=== PATIENT | male | born 1955 | race Caucasian/White ===

== ENCOUNTER 2019-06-25 08:46 | Inpatient (IN) | payer BC ==
[2019-06-25] MEDS ORDERED: Sodium Chloride 0.9% 10 ML Syringe FLUSH PRN (09:07)
--- NOTE | 2019-06-25 09:18 | EDM.PDOC ---
ED HPI GENERAL MEDICAL PROBLEM - General Chief Complaint: Eye Problems Stated Complaint: FAINTED YESTERDAY BAD EYE SIGHT TODAY Time Seen by Provider: 06/25/19 08:56 Source of Information: Reports: Patient History Limitations: Reports: No Limitations - History of Present Illness INITIAL COMMENTS - FREE TEXT/NARRATIVE: The patient presents with vision changes and lightheadedness. The patient says this all started yesterday. He was at work making coffee when he became lightheaded. He did not pass out but he was lightheaded. He has had some lightheadedness since then. He also has some vision changes. He says when he is reading at times his vision will be blurry and then he looses letters at the edge of the page. He has no headache, chest pain or shortness of breath. He has no numbness or weakness. He has no fever, chills, cough, congestion, runny nose, abdominal pain, nausea or vomiting. This has never happened to him before. He has hypertension that he takes meds for. He has no history of heart problems. 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 He has not been taking his potassium lately because he does not feel like his potassium is low. Onset: Gradual Duration: Day(s): Improves with: Reports: None Worsens with: Reports: None Associated Symptoms: Reports: No Other Symptoms - Related Data Allergies Allergy/AdvReac Type Severity Reaction Status Date / Time No Known Allergies Allergy Verified 06/25/19 09:00 Home Meds: Home Meds Nebivolol HCl [Bystolic] 10 mg PO DAILY 06/25/19 [History] Potassium Chloride 10 meq PO DAILY 06/25/19 [History] Spironolactone [Aldactone] 25 mg PO DAILY 06/25/19 [History] Valsartan 320 mg PO DAILY 06/25/19 [History] acetaZOLAMIDE [Acetazolamide] 250 mg PO DAILY 06/25/19 [History] ED ROS GENERAL - Review of Systems Review Of Systems: See Below Constitutional: Reports: No Symptoms HEENT: Reports: Other (Vision changes) Respiratory: Reports: No Symptoms Cardiovascular: Reports: No Symptoms Endocrine: Reports: No Symptoms GI/Abdominal: Reports: No Symptoms : Reports: No Symptoms Musculoskeletal: Reports: No Symptoms ED EXAM GENERAL W FULL EYE - Physical Exam Exam: See Below Exam Limited By: No Limitations General Appearance: Alert, No Apparent Distress Eye Exam: Bilateral Eye: EOMI, PERRL Eyelids: Bilateral: Normal Appearance Conjunctiva & Sclera: Bilateral: Normal Appearance Extraocular Movements: Bilateral: Intact Pupillary Size: Bilateral: 4 mm Pupillary Reaction: Bilateral: Brisk Anterior Chamber: Bilateral: Normal Appearance Posterior Chamber: Bilateral: Normal Funduscopic Ears: Normal External Exam Nose: Normal Inspection Head: Atraumatic, Normocephalic Neck: Normal Inspection Respiratory/Chest: No Respiratory Distress, Lungs Clear, Normal Breath Sounds Cardiovascular: Regular Rate, Rhythm, No Edema, No Murmur GI/Abdominal: Soft, Non-Tender, No Organomegaly, No Mass Back Exam: Normal Inspection Extremities: Normal Inspection Neurological: Alert, Oriented, No Motor/Sensory Deficits Course - Vital Signs Last Recorded V/S: Last Vital Signs Temp 96.8 F L 06/25/19 08:53 Pulse 72 06/25/19 08:53 Resp 20 06/25/19 08:53 BP 129/77 06/25/19 08:53 Pulse Ox 97 06/25/19 08:53 - Orders/Labs/Meds Orders: Active Orders 24 hr Category Date Time Status Cardiac Monitoring [RC] . DIRECTED Care 06/25/19 09:07 Active EKG 12 Lead [EKG Documentation Completion] [RC] ROUTINE Care 06/25/19 08:54 Active EKG 12 Lead [EKG Documentation Completion] [RC] ROUTINE Care 06/25/19 12:12 Active Peripheral IV Care [RC] . DIRECTED Care 06/25/19 09:09 Active Sodium Chloride 0.9% [Saline Flush] Med 06/25/19 09:07 Active 10 ml FLUSH ASDIRECTED PRN Sodium Chloride 0.9% [Saline Flush] Med 06/25/19 10:15 Active 20 ml FLUSH ASDIRECTED Peripheral IV Insertion Adult [OM.PC] Stat Oth 06/25/19 09:07 Ordered Medication Orders Sodium Chloride (Saline Flush) 10 ml FLUSH ASDIRECTED PRN PRN Reason: Keep Vein Open Last Admin: 06/25/19 09:18 Dose: 10 ml Sodium Chloride (Saline Flush) 20 ml FLUSH ASDIRECTED HILL Last Admin: 06/25/19 10:44 Dose: 20 ml Labs: Laboratory Tests 06/25/19 06/25/19 06/25/19 Range/Units 09:00 09:00 09:00 WBC 9.73 H (4.23-9.07) K/mm3 RBC 5.61 (4.63-6.08) M/mm3 Hgb 17.8 H (13.7-17.5) gm/dl Hct 54.3 H (40.1-51.0) % MCV 96.8 H (79.0-92.2) fl MCH 31.7 (25.7-32.2) pg MCHC 32.8 (32.2-35.5) g/dl RDW Std Deviation 55.6 H (35.1-43.9) fL Plt Count 412 H (163-337) K/mm3 MPV 11.2 (9.4-12.3) fl Neut % (Auto) 52.6 (34.0-67.9) % Lymph % (Auto) 27.6 (21.8-53.1) % Elbert % (Auto) 13.6 H (5.3-12.2) % Eos % (Auto) 4.8 (0.8-7.0) Baso % (Auto) 1.1 (0.1-1.2) % Neut # (Auto) 5.11 (1.78-5.38) K/mm3 Lymph # (Auto) 2.69 (1.32-3.57) K/mm3 Elbert # (Auto) 1.32 H (0.30-0.82) K/mm3 Eos # (Auto) 0.47 (0.04-0.54) K/mm3 Baso # (Auto) 0.11 H (0.01-0.08) K/mm3 PT 10.9 (9.7-12.0) SECONDS INR 1.00 APTT 29 (22-31) SECONDS Sodium 136 (136-145) mEq/L Potassium 4.4 (3.5-5.1) mEq/L Chloride 103 (98-107) mEq/L Carbon Dioxide 21 (21-32) mEq/L Anion Gap 16.4 H (5-15) BUN 29 H (7-18) mg/dL Creatinine 0.6 L (0.7-1.3) mg/dL Est Cr Clr Drug Dosing 140.11 mL/min Estimated GFR (MDRD) > 60 (>60) mL/min BUN/Creatinine Ratio 48.3 H (14-18) Glucose 132 H (80-115) mg/dL Calcium 9.5 (8.5-10.1) mg/dL Magnesium 1.9 (1.8-2.4) mg/dl Total Bilirubin 0.8 (0.2-1.0) mg/dL AST 42 H (15-37) U/L ALT 46 (16-63) U/L Alkaline Phosphatase 92 (46-116) U/L Troponin I < 0.017 (0.00-0.056) ng/mL Total Protein 7.8 (6.4-8.2) g/dl Albumin 3.9 (3.4-5.0) g/dl Globulin 3.9 gm/dL Albumin/Globulin Ratio 1.0 (1-2) TSH 3rd Generation 3.679 (0.358-3.74) uIU/mL Meds: Medications Generic Name Dose Route Start Last Admin Trade Name Freq PRN Reason Stop Dose Admin Sodium Chloride 10 ml 06/25/19 09:07 06/25/19 09:18 Saline Flush FLUSH 10 ml ASDIRECTED PRN Administration Keep Vein Open Sodium Chloride 20 ml 06/25/19 10:15 06/25/19 10:44 Saline Flush FLUSH 20 ml ASDIRECTED HILL Administration Discontinued Medications Generic Name Dose Route Start Last Admin Trade Name Bárbara PRN Reason Stop Dose Admin Aspirin 324 mg 06/25/19 13:27 06/25/19 13:38 Aspirin PO 06/25/19 13:28 324 mg ONETIME ONE Administration Gadobenate Dimeglumine 20 ml 06/25/19 10:03 06/25/19 10:44 Multihance IVPUSH 06/25/19 10:04 20 ml ONETIME ONE Administration - Re-Assessments/Exams Free Text/Narrative Re-Assessment/Exam: 06/25/19 09:20 The patient was put on the property assessment monitor and he was in A-fib. He was having some pauses with the longest being about 3 seconds. His EKG shows atrial fibrillation at a rate of 70 with no acute changes and RBBB. He has no known history of A-fib. I also ordered a CT of his head and labs. I had my nurse put the pacer pads on the patient. 06/25/19 13:09 His CXR shows nothing acute. His CT shows small low density finding within the cortex of the posterior left occipital lobe. This could represent fairly recent infarct. Brain MRI is recommended to make sure this does not represent other abnormality. Brain MRI should be performed without and with contrast. Sinus findings which are most likely chronic. No acute intracranial abnormality is seen. I ordered an MRI. His MRI shows abnormal diffusion within the cortex of the left posterior occipital lobe. 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 Small vessel ischemic demyelination change believed to be present. His CBC and CMP look good. His tropnin is negative. It appears he has new onset A-fib and a stroke. I talked with our hospitalist and she was concerned with his EKG and property assessment monitor that he is having many pauses with the A-fib. The longest was 3 seconds. She recommended he go down to [place]. I have called [facility] in [place]. 06/25/19 13:[address] Linda the neurologist and she wanted him to have aspirin and was okay with him coming but talk to cardiology and the hospitalist first. I talked with Dr Killian the light equipment operator and he recommended halfing his bystolic and if that does not help stopping it. He did not feel like he needed to come at this time. I talked with Dr Ray and she was okay with the admission. Departure - Departure Time of Disposition: 13:45 Disposition: Refer to Observation Condition: Fair Clinical Impression: Atrial fibrillation Qualifiers: Atrial fibrillation type: unspecified Qualified Code(s): I48.91 - Unspecified atrial fibrillation CVA (cerebral vascular accident) Qualifiers: CVA mechanism: unspecified Qualified Code(s): I63.9 - Cerebral infarction, unspecified - Discharge Information Referrals: PCP,None [Primary Care Provider] - Forms: ED Department Discharge Sepsis Event Note - Evaluation Sepsis Screening Result: No Definite Risk - Focused Exam Vital Signs: Vital Signs Temp Pulse Resp BP Pulse Ox 06/25/19 08:53 96.8 F L 72 20 129/77 97 Date Exam was Performed: 06/25/19 Time Exam was Performed: 13:41 - My Orders Last 24 Hours: My Active Orders 06/25/19 08:54 EKG 12 Lead [EKG Documentation Completion] [RC] ROUTINE 06/25/19 09:07 Cardiac Monitoring [RC] . DIRECTED Sodium Chloride 0.9% [Saline Flush] 10 ml FLUSH ASDIRECTED PRN Peripheral IV Insertion Adult [OM.PC] Stat 06/25/19 09:09 Peripheral IV Care [RC] . DIRECTED 06/25/19 10:15 Sodium Chloride 0.9% [Saline Flush] 20 ml FLUSH ASDIRECTED - Assessment/Plan Last 24 Hours: My Active Orders 06/25/19 08:54 EKG 12 Lead [EKG Documentation Completion] [RC] ROUTINE 06/25/19 09:07 Cardiac Monitoring [RC] . DIRECTED Sodium Chloride 0.9% [Saline Flush] 10 ml FLUSH ASDIRECTED PRN Peripheral IV Insertion Adult [OM.PC] Stat 06/25/19 09:09 Peripheral IV Care [RC] . DIRECTED 06/25/19 10:15 Sodium Chloride 0.9% [Saline Flush] 20 ml FLUSH ASDIRECTED
--- NOTE | 2019-06-25 09:38 | CT ---
Head CT Technique: Multiple axial sections through the brain were obtained. Intravenous contrast was not utilized. Comparison: No previous intracranial imaging is available. Findings: Ventricles along with basal cisterns and sulci over the convexities are within normal limits for the patient's age. Small low density area noted within the cortex of the left occipital lobe measuring 2.1 cm. No other abnormal parenchymal densities are seen. No evidence of intracranial hemorrhage. No midline shift or mass-effect is seen. Bone window settings were reviewed. Atherosclerotic calcification is seen within the carotid siphon. Nothing acute is seen within the mastoid sinuses. Mild mucosal thickening is noted within the ethmoid and right frontal sinus. No air-fluid level seen within the paranasal sinuses. No acute calvarial finding is seen. Impression: 1. Small low density finding within the cortex of the posterior left occipital lobe. This could represent fairly recent infarct. Brain MRI is recommended to make sure this does not represent other abnormality. Brain MRI should be performed without and with contrast. 2. Sinus findings which are most likely chronic. 3. No acute intracranial abnormality is seen. Diagnostic code #9 This report was dictated in MDT
[2019-06-25] MEDS ORDERED: Gadobenate Dimeglumine 529 MG/ML 20 ML SDV IVPUSH ONE (10:03)
[2019-06-25] MEDS ORDERED: Sodium Chloride 0.9% 10 ML Syringe FLUSH SCH (10:15)
--- NOTE | 2019-06-25 10:29 | CR ---
Chest: Portable view of the chest was obtained. Comparison: No prior chest imaging is available. Mild atelectasis is seen within the left base. Lungs otherwise are clear. Heart size and mediastinum are normal. Bony structures are unremarkable. Impression: 1. Mild left basilar atelectasis. 2. Nothing acute is otherwise seen on portable chest x-ray. Diagnostic code #2 This report was dictated in MDT
--- NOTE | 2019-06-25 11:32 | MR ---
MRI brain Technique: T1 sagittal; T2, T2 FLAIR, T1 and diffusion axial; T1 and T2 gradient echo coronal; postcontrast T1 axial and post contrast T1 coronal images were obtained of the brain. Comparison: Prior head CT study performed earlier on the same day (9:15 AM). Findings: Multiple small areas of increased signal seen within the periventricular and subcortical white matter most likely representing small vessel ischemic demyelination change. More focal area of increased signal is seen within the cortex of the left occipital lobe. This area shows abnormal diffusion and is compatible with a cortical infarct. Increased signal on the FLAIR sequence is compatible with irreversible infarct. No other areas of abnormal diffusion are seen. No midline shift or mass-effect is seen. No abnormal areas of enhancement are seen. Impression: 1. Abnormal diffusion within the cortex of the left posterior occipital lobe. 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 2. Small vessel ischemic demyelination change believed to be present. 3. No abnormal enhancement is seen. Diagnostic code #3 This report was dictated in MDT
[2019-06-25] MEDS ORDERED: Aspirin 81 MG Tab.Chew PO ONE (13:27)
[2019-06-25] MEDS ORDERED: Acetaminophen 325 MG Tab PO PRN (14:19)
--- NOTE | 2019-06-25 14:31 | PCM.HP.2 ---
H&P History of Present Illness - General Date of Service: 06/25/19 Admit Problem/Dx: Admission Diagnosis/Problem Admission Diagnosis/Problem Cardiac arrhythmia Source of Information: Patient, Provider, RN, RN Notes Reviewed History Limitations: Reports: No Limitations - History of Present Illness Initial Comments - Free Text/Narative: Michael Fitch is a 63 yo male who presented to ED on 06/25/2019 reporting vision changes and lightheadedness. He states that he began having symptoms the day prior and had a presyncopal episode. Reports he has been lightheaded since then. States his vision has been blurry and he loses letters at the edge of the page. Denies headache, chest pain, shortness of breath, numbness, tingling , weakness, fever, chills, cough, congestion, runny nose, stfe pain, nausea, vomiting. Reports this is never happened to him before. He does have a history of hypertension and is medicated for this. Denies any prior NM. 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 He reports that he has not been taking his potassium though because he feels like it has been normal. In the ED he was afebrile with mild leukocytosis. Troponin was negative and TSH was normal. He was noted to have A. fib on the monitoring engineer with sinus pauses. Longest was 3 seconds. Does have a right bundle branch block. He has no history of A. fib as far as he is aware. Head CT is obtained showing a small low-density finding within the cortex of the posterior left occipital lobe. This could represent a fairly recent infarct. Brain MRI with and without contrast is recommended. And his findings which are most likely chronic and no acute intracranial abnormality are also noted. 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 He also has small vessel ischemic demyelination changes but no abnormal enhancement is seen. Chest x-ray is obtained showing basilar atelectasis but nothing acute. Dr. Herr, neurologist with [facility] in [place] was contacted and would like the patient started on aspirin. He would like cardiology involved as well. Dr. Killian, mammalogist with [facility] contacted and recommends having the patient's Bystolic to start. If that does not help he thinks the patient can come off it and that it is likely not needed at this time. He does not feel the patient needs to be transferred to [place]. He carries a history of hypertension and hypokalemic periodic paralysis. Full code. He does not have a PCP locally. He is subsequently admitted observation status to the medical floor on telemetry for monitoring while his medications are adjusted. - Related Data Allergies/Adverse Reactions: Allergies Allergy/AdvReac Type Severity Reaction Status Date / Time No Known Allergies Allergy Verified 06/25/19 15:12 Home Medications: Home Meds Nebivolol HCl [Bystolic] 10 mg PO DAILY 06/25/19 [History] Potassium Chloride 10 meq PO DAILY 06/25/19 [History] Spironolactone [Aldactone] 25 mg PO DAILY 06/25/19 [History] Valsartan 320 mg PO DAILY 06/25/19 [History] acetaZOLAMIDE [Acetazolamide] 250 mg PO DAILY 06/25/19 [History] Past Medical History HEENT History: Reports: Impaired Vision Other HEENT History: wears glasses Cardiovascular History: Reports: Hypertension Endocrine/Metabolic History: Reports: Other (See Below) Other Endocrine/Metabolic History: Hypokalemic periodic paralysis - Past Surgical History HEENT Surgical History: Reports: Oral Surgery Other HEENT Surgeries/Procedures: wisdom Musculoskeletal Surgical History: Reports: Hip Replacement, Shoulder Surgery Other Musculoskeletal Surgeries/Procedures:: Right hip replacement, rotator cuff surgery. Social & Family History - Tobacco Use Smoking Status *Q: Never Smoker H&P Review of Systems - Review of Systems: Review Of Systems: See Below General: Reports: No Symptoms. Denies: Fever, Malaise, Weakness, Fatigue HEENT: Reports: Visual Changes. Denies: Eye Pain, Headaches, Hearing Changes, Sore Throat, Vertigo Pulmonary: Reports: No Symptoms. Denies: Shortness of Breath, Wheezing, Pleuritic Chest Pain, Cough, Sputum Cardiovascular: Reports: No Symptoms. Denies: Chest Pain, Palpitations, Dyspnea on Exertion, Edema, Lightheadedness Gastrointestinal: Reports: No Symptoms. Denies: Abdominal Pain, Constipation, Diarrhea, Nausea, Vomiting Genitourinary: Reports: No Symptoms. Denies: Pain Musculoskeletal: Reports: No Symptoms Skin: Reports: No Symptoms. Denies: Cyanosis Psychiatric: Reports: No Symptoms. Denies: Confusion Neurological: Reports: No Symptoms. Denies: Dizziness, Headache, Numbness, Paresthesia, Pre-Existing Deficit, Seizure, Syncope, Tingling, Tremors, Trouble Speaking, Difficulty Walking, Weakness, Change in Speech, Gait Disturbance Hematologic/Lymphatic: Reports: No Symptoms Immunologic: Reports: No Symptoms Exam - Exam Exam: See Below - Vital Signs Vital Signs: Last Vital Signs Temp 96.8 F L 06/25/19 08:53 Pulse 72 06/25/19 08:53 Resp 20 06/25/19 08:53 BP 129/77 06/25/19 08:53 Pulse Ox 97 06/25/19 08:53 Weight: 257 lb - Exam Quality Assessment: DVT Prophylaxis General: Alert, Oriented, Cooperative. No: Mild Distress HEENT: Conjunctiva Clear, EACs Clear, EOMI, Hearing Intact, Mucosa Moist & [place] , Nares Patent, Posterior Pharynx Clear, PERRLA Neck: Supple, Trachea Midline Lungs: Clear to Auscultation, Normal Respiratory Effort Cardiovascular: Regular Rate, Regular Rhythm GI/Abdominal Exam: Normal Bowel Sounds, Soft, Non-Tender, No Distention (Male) Exam: Deferred Rectal (Males) Exam: Deferred Back Exam: Normal Inspection, Full Range of Motion Extremities: Normal Inspection, Normal Range of Motion, Non-Tender, No Pedal Edema, Normal Capillary Refill Skin: Warm, Dry, Intact Neurological: Cranial Nerves Intact, Strength Equal Bilateral, Normal Gait, Normal Speech, Normal Tone, Sensation Intact Neuro Extensive - Mental Status: Alert, Oriented x3, Normal Mood/Affect Psychiatric: Alert, Normal Affect, Normal Mood - Patient Data Lab Results Last 24 hrs: Laboratory Results - last 24 hr 06/25/19 06/25/19 06/25/19 Range/Units 09:00 09:00 09:00 WBC 9.73 H (4.23-9.07) K/mm3 RBC 5.61 (4.63-6.08) M/mm3 Hgb 17.8 H (13.7-17.5) gm/dl Hct 54.3 H (40.1-51.0) % MCV 96.8 H (79.0-92.2) fl MCH 31.7 (25.7-32.2) pg MCHC 32.8 (32.2-35.5) g/dl RDW Std Deviation 55.6 H (35.1-43.9) fL Plt Count 412 H (163-337) K/mm3 MPV 11.2 (9.4-12.3) fl Neut % (Auto) 52.6 (34.0-67.9) % Lymph % (Auto) 27.6 (21.8-53.1) % [place] % (Auto) 13.6 H (5.3-12.2) % Eos % (Auto) 4.8 (0.8-7.0) Baso % (Auto) 1.1 (0.1-1.2) % Neut # (Auto) 5.11 (1.78-5.38) K/mm3 Lymph # (Auto) 2.69 (1.32-3.57) K/mm3 [place] # (Auto) 1.32 H (0.30-0.82) K/mm3 Eos # (Auto) 0.47 (0.04-0.54) K/mm3 Baso # (Auto) 0.11 H (0.01-0.08) K/mm3 PT 10.9 (9.7-12.0) SECONDS INR 1.00 APTT 29 (22-31) SECONDS Sodium 136 (136-145) mEq/L Potassium 4.4 (3.5-5.1) mEq/L Chloride 103 (98-107) mEq/L Carbon Dioxide 21 (21-32) mEq/L Anion Gap 16.4 H (5-15) BUN 29 H (7-18) mg/dL Creatinine 0.6 L (0.7-1.3) mg/dL Est Cr Clr Drug Dosing 140.11 mL/min Estimated GFR (MDRD) > 60 (>60) mL/min BUN/Creatinine Ratio 48.3 H (14-18) Glucose 132 H (80-115) mg/dL Calcium 9.5 (8.5-10.1) mg/dL Magnesium 1.9 (1.8-2.4) mg/dl Total Bilirubin 0.8 (0.2-1.0) mg/dL AST 42 H (15-37) U/L ALT 46 (16-63) U/L Alkaline Phosphatase 92 (46-116) U/L Troponin I < 0.017 (0.00-0.056) ng/mL Total Protein 7.8 (6.4-8.2) g/dl Albumin 3.9 (3.4-5.0) g/dl Globulin 3.9 gm/dL Albumin/Globulin Ratio 1.0 (1-2) TSH 3rd Generation 3.679 (0.358-3.74) uIU/mL Result Diagrams: 06/26/19 05:02 06/26/19 05:02 Sepsis Event Note - Evaluation Sepsis Screening Result: No Definite Risk - Focused Exam Vital Signs: Vital Signs Temp Pulse Resp BP Pulse Ox 06/25/19 08:53 96.8 F L 72 20 129/77 97 Date Exam was Performed: 06/26/19 Time Exam was Performed: 13:07 - Problem List (1) New onset a-fib SNOMED Code(s): 54313949 ICD Code: I48.91 - UNSPECIFIED ATRIAL FIBRILLATION Status: Acute Priority : High Current Visit: Yes (2) CVA (cerebral vascular accident) SNOMED Code(s): 819727932 ICD Code: I63.9 - CEREBRAL INFARCTION, UNSPECIFIED Status: Acute Priority : High Current Visit: Yes Qualifiers: CVA mechanism: unspecified Qualified Code(s): I63.9 - Cerebral infarction, unspecified (3) Sinus pause SNOMED Code(s): 22439498 ICD Code: I45.5 - OTHER SPECIFIED HEART BLOCK Status: Acute Priority: High Current Visit: Yes (4) Vision impairment SNOMED Code(s): 839007772 ICD Code: H54.7 - UNSPECIFIED VISUAL LOSS Status: Acute Priority: High Current Visit: Yes (5) Hypokalemic periodic paralysis SNOMED Code(s): 73170163 ICD Code: G72.3 - PERIODIC PARALYSIS Status: Chronic Priority: Low Current Visit: Yes (6) Hypertension SNOMED Code(s): 13710726 ICD Code: I10 - ESSENTIAL (PRIMARY) HYPERTENSION Status: Chronic Priority : Medium Current Visit: No Qualifiers: Hypertension type: unspecified Qualified Code(s): I10 - Essential (primary ) hypertension (7) Encounter for medication adjustment SNOMED Code(s): 013006732, 673764289, 469142055 ICD Code: Z51.89 - ENCOUNTER FOR OTHER SPECIFIED AFTERCARE Status: Acute Priority: High Current Visit: Yes Problem List Initiated/Reviewed/Updated: Yes Orders Last 24hrs: Active Orders 24 hr Category Date Time Status Patient Status [ADT] Routine ADT 06/25/19 14:19 Ordered Cardiac Monitoring [RC] . DIRECTED Care 06/25/19 09:07 Active EKG 12 Lead [EKG Documentation Completion] [RC] ROUTINE Care 06/25/19 08:54 Active EKG 12 Lead [EKG Documentation Completion] [RC] ROUTINE Care 06/25/19 12:12 Active Height and Weight [RC] DAILY Care 06/25/19 14:19 Ordered Oxygen Therapy [RC] PRN Care 06/25/19 14:19 Ordered Peripheral IV Care [RC] . DIRECTED Care 06/25/19 09:09 Active Pulse Oximetry [RC] PRN Care 06/25/19 14:20 Ordered Up ad Senia [RC] ASDIRECTED Care 06/25/19 14:19 Ordered VTE/DVT Education [RC] PER UNIT ROUTINE Care 06/25/19 14:19 Ordered Vital Signs [RC] Q4H Care 06/25/19 14:19 Ordered Heart Healthy Diet [DIET] Diet 06/25/19 Dinner Ordered Acetaminophen [Tylenol] Med 06/25/19 14:19 Ordered 650 mg PO Q4H PRN Sodium Chloride 0.9% [Saline Flush] Med 06/25/19 09:07 Active 10 ml FLUSH ASDIRECTED PRN Sodium Chloride 0.9% [Saline Flush] Med 06/25/19 10:15 Active 20 ml FLUSH ASDIRECTED Peripheral IV Insertion Adult [OM.PC] Stat Oth 06/25/19 09:07 Ordered Resuscitation Status Routine Resus Stat 06/25/19 14:19 Ordered Medication Orders Acetaminophen (Tylenol) 650 mg PO Q4H PRN PRN Reason: Pain (Mild 1-3)/fever Sodium Chloride (Saline Flush) 10 ml FLUSH ASDIRECTED PRN PRN Reason: Keep Vein Open Last Admin: 06/25/19 09:18 Dose: 10 ml Sodium Chloride (Saline Flush) 20 ml FLUSH ASDIRECTED [facility] Last Admin: 06/25/19 10:44 Dose: 20 ml Assessment/Plan Comment:: CVA (cerebral vascular accident) New onset a-fib Encounter for medication adjustment Sinus pause Vision impairment Reports symptoms started on 06/24/19 with near syncopal episode No neurological deficits however vision changes with blurry vision and difficulty peripheral vision MRI in ED shows abnormal diffusion within the cortex of left posterior occipital lobe compatible with small irreversible cortical infarct Repots recent intentional weight gain and concerns over strength of medications Troponin negative Denies any infectious symptoms Dr. Killian, cardiology contacted in ED and recommends halving dosage of Bystolic under monitorization Dr. Linda, Neurologist contacted in ED and recommends giving patient aspirin PLAN - Telemetry - Adjust home medications - Start ASA - Patient denies any deficits, No need for LEAD TELLER eval or PT/OT at this time - Lipid panel - Calculate [id number] score Hypokalemic periodic paralysis On home potassium supplementation Has not been taking home potassium as he feels like he has not been low in some time PLAN - Monitor Labs Hypertension On home Spironolactone, and valsartan PLAN - Continue home meds - Monitor VS DVT prophylaxis: Aspirin and Lovenox GI prophylaxis: Not indicated PCP: None Disposition: Patient will be admitted to the floor under observation status with telemetry for monitoring while medications are adjusted. - Mortality Measure Prognosis:: Good
[2019-06-25] MEDS ORDERED: FLU Vacc QS2019-20(6MOS+)/PF 60 MCG/0.5 ML SYRINGE IM ONE (15:30)
[2019-06-26] MEDS ORDERED: ACETAZOLAMIDE 250 MG PO SCH (09:00)
[2019-06-26] MEDS ORDERED: Spironolactone 25 MG Tab PO SCH (09:00)
[2019-06-26] MEDS ORDERED: NEBIVOLOL HCL 10 MG PO SCH (09:00)
[2019-06-26] MEDS ORDERED: Aspirin 325 MG Tab.EC PO SCH (09:00)
[2019-06-26] MEDS: Aspirin 81 MG Tab.Chew PO SCH (09:29)
[2019-06-26] MEDS: Apixaban 5 MG Tab PO SCH ×2 (09:30→20:31)
[2019-06-26] MEDS: VALSARTAN PO SCH (09:31)
--- NOTE | 2019-06-26 13:17 | PCM.PN ---
- General Info Date of Service: 06/26/19 Admission Dx/Problem (Free Text): Admission Diagnosis/Problem Admission Diagnosis/Problem Cardiac arrhythmia Functional Status: Reports: Pain Controlled, Tolerating Diet, Ambulating, Urinating. Denies: New Symptoms - Review of Systems General: Reports: No Symptoms. Denies: Fever, Weakness, Fatigue, Malaise, Chills HEENT: Reports: No Symptoms, Visual Changes (About 95% back to normal per patient ). Denies: Ear Pain, Eye Pain, Headaches, Sinus Congestion, Sore Throat Pulmonary: Reports: No Symptoms. Denies: Shortness of Breath, Pleuritic Chest Pain, Cough, Sputum, Wheezing Cardiovascular: Reports: No Symptoms. Denies: Chest Pain, Palpitations, Edema Gastrointestinal: Reports: No Symptoms. Denies: Abdominal Pain, Constipation, Diarrhea, Nausea, Vomiting Genitourinary: Reports: No Symptoms. Denies: Pain Musculoskeletal: Reports: No Symptoms Skin: Reports: No Symptoms Neurological: Reports: No Symptoms. Denies: Confusion, Dizziness, Headache, Numbness, Paresthesia, Pre-Existing Deficit, Seizure, Syncope, Tingling, Tremors , Trouble Speaking, Difficulty Walking, Weakness, Change in Speech, Gait Disturbance Psychiatric: Reports: No Symptoms - Patient Data Vitals - Most Recent: Last Vital Signs Temp 97.7 F 06/26/19 11:19 Pulse 60 06/26/19 11:19 Resp 16 06/26/19 11:19 BP 100/68 06/26/19 11:19 Pulse Ox 96 06/26/19 11:19 Weight - Most Recent: 257 lb I&O - Last 24 Hours: Intake & Output 06/25/19 06/26/19 06/26/19 22:59 06:59 14:59 Intake Total 100 600 120 Output Total 1300 Balance 100 -700 120 Lab Results Last 24 Hours: Laboratory Results - last 24 hr 06/25/19 06/26/19 06/26/19 Range/Units 09:00 04:55 05:02 WBC 10.05 H (4.23-9.07) K/mm3 RBC 5.42 (4.63-6.08) M/mm3 Hgb 17.2 (13.7-17.5) gm/dl Hct 53.0 H (40.1-51.0) % MCV 97.8 H (79.0-92.2) fl MCH 31.7 (25.7-32.2) pg MCHC 32.5 (32.2-35.5) g/dl RDW Std Deviation 55.1 H (35.1-43.9) fL Plt Count 372 H (163-337) K/mm3 MPV 10.9 (9.4-12.3) fl Neut % (Auto) 46.6 (34.0-67.9) % Lymph % (Auto) 30.0 (21.8-53.1) % [place] % (Auto) 15.8 H (5.3-12.2) % Eos % (Auto) 6.5 (0.8-7.0) Baso % (Auto) 0.9 (0.1-1.2) % Neut # (Auto) 4.69 (1.78-5.38) K/mm3 Lymph # (Auto) 3.01 (1.32-3.57) K/mm3 [place] # (Auto) 1.59 H (0.30-0.82) K/mm3 Eos # (Auto) 0.65 H (0.04-0.54) K/mm3 Baso # (Auto) 0.09 H (0.01-0.08) K/mm3 Manual Slide Review Abnormal smear PT 10.9 (9.7-12.0) SECONDS INR 1.00 APTT 29 (22-31) SECONDS Sodium (136-145) mEq/L Potassium (3.5-5.1) mEq/L Chloride (98-107) mEq/L Carbon Dioxide (21-32) mEq/L Anion Gap (5-15) BUN (7-18) mg/dL Creatinine (0.7-1.3) mg/dL Est Cr Clr Drug Dosing mL/min Estimated GFR (MDRD) (>60) mL/min BUN/Creatinine Ratio (14-18) Glucose (80-115) mg/dL Calcium (8.5-10.1) mg/dL Phosphorus (2.6-4.7) mg/dL Magnesium (1.8-2.4) mg/dl Total Bilirubin (0.2-1.0) mg/dL AST (15-37) U/L ALT (16-63) U/L Alkaline Phosphatase (46-116) U/L Total Protein (6.4-8.2) g/dl Albumin (3.4-5.0) g/dl Globulin gm/dL Albumin/Globulin Ratio (1-2) Triglycerides 119 (<150) mg/dL Cholesterol 174 (<200) mg/dL LDL Cholesterol Direct 108 H* (<100) mg/dL HDL Cholesterol 52.0 (40-59) mg/dL 06/26/19 Range/Units 05:02 WBC (4.23-9.07) K/mm3 RBC (4.63-6.08) M/mm3 Hgb (13.7-17.5) gm/dl Hct (40.1-51.0) % MCV (79.0-92.2) fl MCH (25.7-32.2) pg MCHC (32.2-35.5) g/dl RDW Std Deviation (35.1-43.9) fL Plt Count (163-337) K/mm3 MPV (9.4-12.3) fl Neut % (Auto) (34.0-67.9) % Lymph % (Auto) (21.8-53.1) % [place] % (Auto) (5.3-12.2) % Eos % (Auto) (0.8-7.0) Baso % (Auto) (0.1-1.2) % Neut # (Auto) (1.78-5.38) K/mm3 Lymph # (Auto) (1.32-3.57) K/mm3 [place] # (Auto) (0.30-0.82) K/mm3 Eos # (Auto) (0.04-0.54) K/mm3 Baso # (Auto) (0.01-0.08) K/mm3 Manual Slide Review PT (9.7-12.0) SECONDS INR APTT (22-31) SECONDS Sodium 137 (136-145) mEq/L Potassium 4.6 (3.5-5.1) mEq/L Chloride 104 (98-107) mEq/L Carbon Dioxide 23 (21-32) mEq/L Anion Gap 14.6 (5-15) BUN 26 H (7-18) mg/dL Creatinine 0.7 (0.7-1.3) mg/dL Est Cr Clr Drug Dosing 120.10 mL/min Estimated GFR (MDRD) > 60 (>60) mL/min BUN/Creatinine Ratio 37.1 H (14-18) Glucose 98 (80-115) mg/dL Calcium 9.0 (8.5-10.1) mg/dL Phosphorus 4.5 (2.6-4.7) mg/dL Magnesium 2.0 (1.8-2.4) mg/dl Total Bilirubin 0.7 (0.2-1.0) mg/dL AST 35 (15-37) U/L ALT 37 (16-63) U/L Alkaline Phosphatase 78 (46-116) U/L Total Protein 6.9 (6.4-8.2) g/dl Albumin 3.4 (3.4-5.0) g/dl Globulin 3.5 gm/dL Albumin/Globulin Ratio 1.0 (1-2) Triglycerides (<150) mg/dL Cholesterol (<200) mg/dL LDL Cholesterol Direct (<100) mg/dL HDL Cholesterol (40-59) mg/dL Med Orders - Current: Current Medications Acetaminophen (Tylenol) 650 mg PO Q4H PRN PRN Reason: Pain (Mild 1-3)/fever Apixaban (Eliquis) 5 mg PO BID [facility] Last Admin: 06/26/19 09:30 Dose: Not Given Aspirin (Aspirin) 81 mg PO DAILY [facility] Last Admin: 06/26/19 09:29 Dose: Not Given Nebivolol Hcl 10 Mg Patient's Own Med 0 each PO DAILY [facility] Last Admin: 06/26/19 09:31 Dose: Not Given Acetazolamide 250 Mg Patient's Own Med 0 each PO DAILY [facility] Last Admin: 06/26/19 09:31 Dose: Not Given Valsartan [Valsartan ] 160 Mg = 1/2 Tab * * Patient's Own Med 0 each PO DAILY [facility] Last Admin: 06/26/19 09:31 Dose: Not Given Sodium Chloride (Saline Flush) 20 ml FLUSH ASDIRECTED [facility] Last Admin: 06/25/19 10:44 Dose: 20 ml Spironolactone (Aldactone) 25 mg PO DAILY [facility] Last Admin: 06/26/19 09:29 Dose: Not Given Discontinued Medications Aspirin (Aspirin) 324 mg PO ONETIME ONE Stop: 06/25/19 13:28 Last Admin: 06/25/19 13:38 Dose: 324 mg Aspirin (Ecotrin) 325 mg PO DAILY [facility] Last Admin: 06/26/19 08:36 Dose: 325 mg Gadobenate Dimeglumine (Multihance) 20 ml IVPUSH ONETIME ONE Stop: 06/25/19 10:04 Last Admin: 06/25/19 10:44 Dose: 20 ml Influenza Virus Vaccine (Pharmacy To Dose - Influenza Vaccine) 0 each IM ONETIME ONE Stop: 06/25/19 15:05 Influenza Virus Vaccine (Fluzone Quad Syringe) 60 mcg IM .ONCE ONE Stop: 06/25/19 15:31 Sodium Chloride (Saline Flush) 10 ml FLUSH ASDIRECTED PRN PRN Reason: Keep Vein Open Last Admin: 06/25/19 09:18 Dose: 10 ml - Exam Quality Assessment: DVT Prophylaxis General: Alert, Oriented, Cooperative, No Acute Distress HEENT: Pupils Equal, Pupils Reactive, EOMI, Mucous Membr. Moist/[place] Neck: Supple, Trachea Midline Lungs: Clear to Auscultation, Normal Respiratory Effort Cardiovascular: Regular Rate, Irregular Rhythm GI/Abdominal Exam: Normal Bowel Sounds, Soft, Non-Tender, No Distention (Male) Exam: Deferred Back Exam: Normal Inspection, Full Range of Motion Extremities: Normal Inspection, Normal Range of Motion, Non-Tender, No Pedal Edema, Normal Capillary Refill Skin: Warm, Dry, Intact Neurological: No New Focal Deficit, Normal Gait, Normal Speech, Normal Tone, Strength Equal Bilateral, Reflexes Equal Bilateral, Sensation Intact, Cranial Nerves Intact Psy/Mental Status: Alert, Normal Affect, Normal Mood Sepsis Event Note - Evaluation Sepsis Screening Result: No Definite Risk - Focused Exam Vital Signs: Vital Signs Temp Pulse Resp BP BP Pulse Ox 06/26/19 11:19 97.7 F 60 16 100/68 96 06/26/19 08:32 99/69 06/26/19 08:02 98.1 F 61 16 95/62 95 06/26/19 03:48 96/64 06/26/19 03:33 97.7 F 63 14 86/59 L 93 L 06/26/19 03:29 97.5 F 66 15 85/60 L 97 Date Exam was Performed: 06/26/19 Time Exam was Performed: 13:08 - Problem List & Annotations (1) New onset a-fib SNOMED Code(s): 90305676 Code(s): I48.91 - UNSPECIFIED ATRIAL FIBRILLATION Status: Acute Priority : High Current Visit: Yes (2) CVA (cerebral vascular accident) SNOMED Code(s): 987261137 Code(s): I63.9 - CEREBRAL INFARCTION, UNSPECIFIED Status: Acute Priority : High Current Visit: Yes Qualifiers: CVA mechanism: unspecified Qualified Code(s): I63.9 - Cerebral infarction, unspecified (3) Sinus pause SNOMED Code(s): 51489830 Code(s): I45.5 - OTHER SPECIFIED HEART BLOCK Status: Acute Priority: High Current Visit: Yes (4) Vision impairment SNOMED Code(s): 665255861 Code(s): H54.7 - UNSPECIFIED VISUAL LOSS Status: Acute Priority: High Current Visit: Yes (5) Hypokalemic periodic paralysis SNOMED Code(s): 47456274 Code(s): G72.3 - PERIODIC PARALYSIS Status: Chronic Priority: Low Current Visit: Yes (6) Hypertension SNOMED Code(s): 85473802 Code(s): I10 - ESSENTIAL (PRIMARY) HYPERTENSION Status: Chronic Priority : Medium Current Visit: No Qualifiers: Hypertension type: unspecified Qualified Code(s): I10 - Essential (primary ) hypertension (7) Encounter for medication adjustment SNOMED Code(s): 993677649, 515757277, 311548605 Code(s): Z51.89 - ENCOUNTER FOR OTHER SPECIFIED AFTERCARE Status: Acute Priority: High Current Visit: Yes - Problem List Review Problem List Initiated/Reviewed/Updated: Yes - My Orders Last 24 Hours: My Active Orders 06/25/19 14:19 Height and Weight [RC] 04 Oxygen Therapy [RC] PRN Up ad Senia [RC] BID VTE/DVT Education [RC] PER UNIT ROUTINE Vital Signs [RC] Q4HR Acetaminophen [Tylenol] 650 mg PO Q4H PRN Resuscitation Status Routine 06/25/19 14:20 Pulse Oximetry [RC] PRN 06/25/19 Dinner Heart Healthy Diet [DIET] 06/26/19 08:41 Echo Comp wo Cont [US] Routine 06/26/19 09:00 Apixaban [Eliquis] 5 mg PO BID Aspirin 81 mg PO DAILY Patient's Own Medication [Ptom] 0 each PO DAILY Patient's Own Medication [Ptom] 0 each PO DAILY Patient's Own Medication [Ptom] 0 each PO DAILY Spironolactone [Aldactone] 25 mg PO DAILY - Plan Plan:: CVA (cerebral vascular accident) New onset a-fib Encounter for medication adjustment Sinus pause Vision impairment Reports symptoms started on 06/24/19 with near syncopal episode No neurological deficits however vision changes with blurry vision and difficulty peripheral vision MRI in ED shows abnormal diffusion within the cortex of left posterior occipital lobe compatible with small irreversible cortical infarct Repots recent intentional weight gain and concerns over strength of medications Troponin negative Denies any infectious symptoms Dr. Killian, cardiology contacted in ED and recommends halving dosage of Bystolic under monitorization Dr. Linda, Neurologist contacted in ED and recommends giving patient aspirin Reports recent 40lb intentional weight loss PLAN - Telemetry - continued A-fib - Adjust home medications - Cut Bystolic to 5mg - Start ASA 81mg - Patient denies any deficits, No need for [employer]PERATOR eval or PT/OT at this time - Lipid panel shows mildly elevated LDL, Triglycerides and HDL WNL - Calculate [id number] score: 3 moderate-high risk - Start Eliquis BID - Start Zocor - Neuro checks as ordered - Obtain echo - Continue Beta awa - Stress test in AM Hypokalemic periodic paralysis On home potassium supplementation and Acetazolamide Has not been taking home potassium as he feels like he has not been low in some time PLAN - Monitor Labs Hypertension On home Spironolactone, and valsartan Has been on the low end of normal here PLAN - Continue spironolactone but cut valsartan in half to 160mg - Monitor VS DVT prophylaxis: Eliquis GI prophylaxis: Not indicated PCP: None - has been getting meds refilled by prior PCP. Needs to establish locally Disposition: Patient upgraded to inpatient status due to CVA and new onset A- fib requiring further workup. Likely discharge in 24-48 hours pending test results.
[2019-06-26] MEDS ORDERED: Metoprolol Tartrate 5 MG/5 ML SDV IVPUSH PRN (14:58)
[2019-06-26] MEDS: Simvastatin 20 MG Tab PO SCH (20:31)
[2019-06-26] MEDS ORDERED: Lactated Ringers 500 ML IV ONE (20:39)
[2019-06-27] MEDS ORDERED: Lactated Ringers 500 ML IV ONE (07:23)
--- NOTE | 2019-06-27 08:03 | PCM.PRNOTE ---
- Free Text/Narrative Note: Date of service: 06/27/19 Procedure: Regadenoson (Lexiscan) stress test Ordering provider: Sam Barber PA-C Indication: New onset A-fib/Flutter Baseline EKG: A-flutter at 64 bpm Risks and benefits were discussed with the patient and consent form was signed. The patient received Regadenoson (Lexiscan) 0.4 mg IV and a nuclear agent using standard protocol. The patient was seated for the procedure. Lexiscan test: Heart rate: 106 bpm; Blood pressure: 135/92 mm Hg; Oxygenation: 96%. EKG changes of ischemia during stress test or in recovery: None Arrhythmias: None Adverse effects of Lexiscan: Chest pressure and lightheadedness. Patient became acutely hypotensive and had a pre-syncopal episode. Patient was reclined in chair which resolved his symptoms. BP remained low and IV fluid bolus of 500mL was ordered to be started on the floor. Test terminated due to: End of protocol Impression: 1. Indeterminate Lexiscan stress test ECG for ischemia. Non-diagnostic per Lexiscan protocol. No definitive signs of ischemia seen. 2. Nuclear images pending and will be reported separately per Radiologist.
--- NOTE | 2019-06-27 09:33 | PCM.PN ---
- General Info Date of Service: 06/27/19 Admission Dx/Problem (Free Text): Admission Diagnosis/Problem Admission Diagnosis/Problem Cardiac arrhythmia Subjective Update: Reports he feels very good this afternoon States vision is still about 95% Hypotensive this AM and yesterday PM - IV fluids given Adjusting medications Reports BM today No patient concerns. Functional Status: Reports: Pain Controlled, Tolerating Diet, Ambulating, Urinating - Review of Systems General: Reports: No Symptoms. Denies: Fever, Weakness, Malaise, Chills HEENT: Reports: Visual Changes (remaining - about 95% back to normal). Denies: Headaches, Sore Throat Pulmonary: Reports: No Symptoms. Denies: Shortness of Breath, Pleuritic Chest Pain, Cough, Sputum, Wheezing Cardiovascular: Reports: No Symptoms. Denies: Chest Pain, Palpitations, Dyspnea on Exertion, Edema Gastrointestinal: Reports: No Symptoms. Denies: Abdominal Pain, Constipation, Diarrhea, Nausea, Vomiting Genitourinary: Reports: No Symptoms. Denies: Pain Musculoskeletal: Reports: No Symptoms Skin: Reports: No Symptoms. Denies: Cyanosis Neurological: Denies: Confusion, Difficulty Walking, Weakness, Gait Disturbance Psychiatric: Reports: No Symptoms - Patient Data Vitals - Most Recent: Last Vital Signs Temp 97.3 F 06/27/19 07:36 Pulse 60 06/27/19 07:36 Resp 16 06/27/19 07:36 BP 99/58 L 06/27/19 07:36 Pulse Ox 94 L 06/27/19 07:36 Weight - Most Recent: 571 lb 14.065 oz I&O - Last 24 Hours: Intake & Output 06/26/19 06/27/19 06/27/19 22:59 06:59 14:59 Intake Total 1999 1600 Output Total 2300 1900 Balance -300 -300 Lab Results Last 24 Hours: Laboratory Results - last 24 hr 06/26/19 06/27/19 06/27/19 Range/Units 04:55 07:47 07:47 WBC 9.19 H (4.23-9.07) K/mm3 RBC 5.38 (4.63-6.08) M/mm3 Hgb 17.1 (13.7-17.5) gm/dl Hct 52.3 H (40.1-51.0) % MCV 97.2 H (79.0-92.2) fl MCH 31.8 (25.7-32.2) pg MCHC 32.7 (32.2-35.5) g/dl RDW Std Deviation 54.1 H (35.1-43.9) fL Plt Count 376 H (163-337) K/mm3 MPV 10.7 (9.4-12.3) fl Neut % (Auto) 54.9 (34.0-67.9) % Lymph % (Auto) 25.4 (21.8-53.1) % [place] % (Auto) 14.0 H (5.3-12.2) % Eos % (Auto) 4.6 (0.8-7.0) Baso % (Auto) 0.9 (0.1-1.2) % Neut # (Auto) 5.05 (1.78-5.38) K/mm3 Lymph # (Auto) 2.33 (1.32-3.57) K/mm3 [place] # (Auto) 1.29 H (0.30-0.82) K/mm3 Eos # (Auto) 0.42 (0.04-0.54) K/mm3 Baso # (Auto) 0.08 (0.01-0.08) K/mm3 Sodium 137 (136-145) mEq/L Potassium 4.4 (3.5-5.1) mEq/L Chloride 105 (98-107) mEq/L Carbon Dioxide 24 (21-32) mEq/L Anion Gap 12.4 (5-15) BUN 21 H (7-18) mg/dL Creatinine 0.6 L (0.7-1.3) mg/dL Est Cr Clr Drug Dosing 140.11 mL/min Estimated GFR (MDRD) > 60 (>60) mL/min BUN/Creatinine Ratio 35.0 H (14-18) Glucose 126 H (80-115) mg/dL Calcium 8.8 (8.5-10.1) mg/dL Magnesium 1.8 (1.8-2.4) mg/dl CK-MB (CK-2) (0-3.6) ng/ml Troponin I (0.00-0.056) ng/mL Triglycerides 119 (<150) mg/dL Cholesterol 174 (<200) mg/dL LDL Cholesterol Direct 108 H* (<100) mg/dL HDL Cholesterol 52.0 (40-59) mg/dL 06/27/19 Range/Units 07:47 WBC (4.23-9.07) K/mm3 RBC (4.63-6.08) M/mm3 Hgb (13.7-17.5) gm/dl Hct (40.1-51.0) % MCV (79.0-92.2) fl MCH (25.7-32.2) pg MCHC (32.2-35.5) g/dl RDW Std Deviation (35.1-43.9) fL Plt Count (163-337) K/mm3 MPV (9.4-12.3) fl Neut % (Auto) (34.0-67.9) % Lymph % (Auto) (21.8-53.1) % [place] % (Auto) (5.3-12.2) % Eos % (Auto) (0.8-7.0) Baso % (Auto) (0.1-1.2) % Neut # (Auto) (1.78-5.38) K/mm3 Lymph # (Auto) (1.32-3.57) K/mm3 [place] # (Auto) (0.30-0.82) K/mm3 Eos # (Auto) (0.04-0.54) K/mm3 Baso # (Auto) (0.01-0.08) K/mm3 Sodium (136-145) mEq/L Potassium (3.5-5.1) mEq/L Chloride (98-107) mEq/L Carbon Dioxide (21-32) mEq/L Anion Gap (5-15) BUN (7-18) mg/dL Creatinine (0.7-1.3) mg/dL Est Cr Clr Drug Dosing mL/min Estimated GFR (MDRD) (>60) mL/min BUN/Creatinine Ratio (14-18) Glucose (80-115) mg/dL Calcium (8.5-10.1) mg/dL Magnesium (1.8-2.4) mg/dl CK-MB (CK-2) 11.9 H (0-3.6) ng/ml Troponin I < 0.017 (0.00-0.056) ng/mL Triglycerides (<150) mg/dL Cholesterol (<200) mg/dL LDL Cholesterol Direct (<100) mg/dL HDL Cholesterol (40-59) mg/dL Med Orders - Current: Current Medications Acetaminophen (Tylenol) 650 mg PO Q4H PRN PRN Reason: Pain (Mild 1-3)/fever Acetazolamide (Diamox) 250 mg PO DAILY [facility] Apixaban (Eliquis) 5 mg PO BID [facility] Last Admin: 06/26/19 20:31 Dose: 5 mg Aspirin (Aspirin) 81 mg PO DAILY [facility] Last Admin: 06/26/19 09:29 Dose: Not Given Metoprolol Tartrate (Lopressor) 5 mg IVPUSH Q4H PRN PRN Reason: Tachycardia Valsartan [Valsartan ] 160 Mg = 1/2 Tab Of 320 Mg Patient' s Own Med 0 each PO DAILY [facility] Last Admin: 06/26/19 09:31 Dose: Not Given Nebivolol Hcl 10 Mg Patient's Own Med 0 each PO DAILY@1200 [facility] Simvastatin (Zocor) 20 mg PO BEDTIME [facility] Last Admin: 06/26/19 20:31 Dose: 20 mg Sodium Chloride (Saline Flush) 20 ml FLUSH ASDIRECTED [facility] Last Admin: 06/25/19 10:44 Dose: 20 ml Spironolactone (Aldactone) 25 mg PO DAILY [facility] Discontinued Medications Aspirin (Aspirin) 324 mg PO ONETIME ONE Stop: 06/25/19 13:28 Last Admin: 06/25/19 13:38 Dose: 324 mg Aspirin (Ecotrin) 325 mg PO DAILY [facility] Last Admin: 06/26/19 08:36 Dose: 325 mg Gadobenate Dimeglumine (Multihance) 20 ml IVPUSH ONETIME ONE Stop: 06/25/19 10:04 Last Admin: 06/25/19 10:44 Dose: 20 ml Lactated Ringer's (Ringers, Lactated) 500 mls @ 500 mls/hr IV .BOLUS ONE Stop: 06/26/19 21:38 Last Admin: 06/26/19 21:00 Dose: 500 mls/hr Lactated Ringer's (Ringers, Lactated) 500 mls @ 999 mls/hr IV .BOLUS ONE Stop: 06/27/19 07:53 Last Admin: 06/27/19 07:31 Dose: 999 mls/hr Influenza Virus Vaccine (Pharmacy To Dose - Influenza Vaccine) 0 each IM ONETIME ONE Stop: 06/25/19 15:05 Influenza Virus Vaccine (Fluzone Quad Syringe) 60 mcg IM .ONCE ONE Stop: 06/25/19 15:31 Nebivolol Hcl 10 Mg Patient's Own Med 0 each PO DAILY [facility] Last Admin: 06/26/19 09:31 Dose: Not Given Acetazolamide 250 Mg Patient's Own Med 0 each PO DAILY [place] Last Admin: 06/26/19 09:31 Dose: Not Given Regadenoson (Lexiscan) 0.4 mg IVPUSH ONETIME ONE Stop: 06/27/19 07:02 Last Admin: 06/27/19 07:04 Dose: 0.4 mg Sodium Chloride (Saline Flush) 10 ml FLUSH ASDIRECTED PRN PRN Reason: Keep Vein Open Last Admin: 06/25/19 09:18 Dose: 10 ml Spironolactone (Aldactone) 25 mg PO DAILY [facility] Last Admin: 06/26/19 09:29 Dose: Not Given - Exam Quality Assessment: DVT Prophylaxis General: Alert, Oriented, Cooperative, No Acute Distress HEENT: Pupils Equal, Pupils Reactive, Mucous Membr. Moist/[place] Neck: Supple, Trachea Midline Lungs: Clear to Auscultation, Normal Respiratory Effort Cardiovascular: Irregular Rhythm GI/Abdominal Exam: Normal Bowel Sounds, Soft, Non-Tender, No Distention (Male) Exam: Deferred Back Exam: Normal Inspection, Full Range of Motion Extremities: Normal Inspection, Normal Range of Motion, Non-Tender, No Pedal Edema, Normal Capillary Refill Peripheral Pulses: 2+: Radial (L), Radial (R), Dorsalis Pedis (L), Dorsalis Pedis (R) Skin: Warm, Dry, Intact Neurological: No New Focal Deficit, Normal Gait, Normal Speech, Normal Tone, Strength Equal Bilateral, Sensation Intact, Cranial Nerves Intact Psy/Mental Status: Alert, Normal Affect, Normal Mood Sepsis Event Note - Evaluation Sepsis Screening Result: No Definite Risk - Focused Exam Vital Signs: Vital Signs Temp Pulse Resp BP Pulse Ox 06/27/19 07:36 97.3 F 60 16 99/58 L 94 L 06/27/19 04:47 97.5 F 72 16 96/63 95 06/26/19 23:53 83/53 L 06/26/19 23:51 97.5 F 91 15 80/62 L 95 Date Exam was Performed: 06/27/19 Time Exam was Performed: 12:58 - Problem List & Annotations (1) New onset a-fib SNOMED Code(s): 26582778 Code(s): I48.91 - UNSPECIFIED ATRIAL FIBRILLATION Status: Acute Priority : High Current Visit: Yes (2) CVA (cerebral vascular accident) SNOMED Code(s): 351253032 Code(s): I63.9 - CEREBRAL INFARCTION, UNSPECIFIED Status: Acute Priority : High Current Visit: Yes Qualifiers: CVA mechanism: unspecified Qualified Code(s): I63.9 - Cerebral infarction, unspecified (3) Sinus pause SNOMED Code(s): 40928998 Code(s): I45.5 - OTHER SPECIFIED HEART BLOCK Status: Acute Priority: High Current Visit: Yes (4) Vision impairment SNOMED Code(s): 667268327 Code(s): H54.7 - UNSPECIFIED VISUAL LOSS Status: Acute Priority: High Current Visit: Yes (5) Hypokalemic periodic paralysis SNOMED Code(s): 34715405 Code(s): G72.3 - PERIODIC PARALYSIS Status: Chronic Priority: Low Current Visit: Yes (6) Hypertension SNOMED Code(s): 84513832 Code(s): I10 - ESSENTIAL (PRIMARY) HYPERTENSION Status: Chronic Priority : Medium Current Visit: No Qualifiers: Hypertension type: unspecified Qualified Code(s): I10 - Essential (primary ) hypertension (7) Encounter for medication adjustment SNOMED Code(s): 461393091, 334490335, 939636318 Code(s): Z51.89 - ENCOUNTER FOR OTHER SPECIFIED AFTERCARE Status: Acute Priority: High Current Visit: Yes (8) Hypotension SNOMED Code(s): 61557400 Code(s): I95.9 - HYPOTENSION, UNSPECIFIED Status: Acute Priority: High Current Visit: Yes Qualifiers: Hypotension type: unspecified hypotension type Qualified Code(s): I95.9 - Hypotension, unspecified - Problem List Review Problem List Initiated/Reviewed/Updated: Yes - My Orders Last 24 Hours: My Active Orders 06/26/19 09:00 Apixaban [Eliquis] 5 mg PO BID Aspirin 81 mg PO DAILY Patient's Own Medication [Ptom] 0 each PO DAILY 06/26/19 13:10 Neuro Check [RC] BID 06/26/19 13:19 Communication Order [RC] 0600 06/26/19 14:00 Consult to Occupational Therapy [OT Evaluation and Treatment] [CONS] Routine PT Evaluation and Treatment [CONS] Routine 06/26/19 14:58 Metoprolol Tartrate [Lopressor] 5 mg IVPUSH Q4H PRN 06/26/19 21:00 Simvastatin [Zocor] 20 mg PO BEDTIME 06/27/19 08:00 Myocardial Perf Spect Multi [NM] Routine 06/27/19 09:00 Spironolactone [Aldactone] 25 mg PO DAILY acetaZOLAMIDE [Diamox] 250 mg PO DAILY 06/27/19 09:10 CREATINE KINASE,CK [CHEM] Routine 06/27/19 12:00 Patient's Own Medication [Ptom] 0 each PO DAILY@1200 06/27/19 Breakfast NPO [Nothing Per Oral Diet] [DIET] 06/28/19 05:11 BASIC METABOLIC PANEL,BMP [CHEM] AM CBC WITH AUTO DIFF [HEME] AM MAGNESIUM [CHEM] AM 06/29/19 05:11 BASIC METABOLIC PANEL,BMP [CHEM] AM CBC WITH AUTO DIFF [HEME] AM MAGNESIUM [CHEM] AM 06/30/19 05:11 BASIC METABOLIC PANEL,BMP [CHEM] AM CBC WITH AUTO DIFF [HEME] AM MAGNESIUM [CHEM] AM 07/01/19 05:11 BASIC METABOLIC PANEL,BMP [CHEM] AM CBC WITH AUTO DIFF [HEME] AM MAGNESIUM [CHEM] AM - Plan Plan:: CVA (cerebral vascular accident) New onset a-fib Encounter for medication adjustment Sinus pause Vision impairment Reports symptoms started on 06/24/19 with near syncopal episode No neurological deficits however vision changes with blurry vision and difficulty peripheral vision MRI in ED shows abnormal diffusion within the cortex of left posterior occipital lobe compatible with small irreversible cortical infarct Repots recent intentional weight gain and concerns over strength of medications Troponin negative in ED Denies any infectious symptoms Dr. Killian, cardiology contacted in ED and recommends halving dosage of Bystolic under monitorization Dr. Linda, Neurologist contacted in ED and recommends giving patient aspirin Reports recent 40lb intentional weight loss Echo obtained 06/26/19 * LVEF, by visual estimation, is 45-50% * Mildly decreased left ventricular systolic function * Mild concentric left ventricular hypertrophy * Mildly dilated left atrium * Trace mitral valve regurgitation * Trace tricuspid valve regurgitation * The study was performed with the patient in atrial fibrillation/flutter PLAN - Telemetry - continued A-fib with rate controlled. 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 Needs to establish locally Disposition: Patient upgraded to inpatient status due to CVA and new onset A- fib requiring further workup. Patient has had hypotension while here which has required further testing.
[2019-06-27] MEDS: Apixaban 5 MG Tab PO SCH ×2 (11:59→21:14)
[2019-06-27] MEDS: Spironolactone 25 MG Tab PO SCH (11:59)
[2019-06-27] MEDS: Aspirin 81 MG Tab.Chew PO SCH (11:59)
[2019-06-27] MEDS: NEBIVOLOL HCL 10 MG PO SCH (12:00)
[2019-06-27] MEDS: acetaZOLAMIDE 250 MG Tab PO SCH (12:00)
[2019-06-27] MEDS: VALSARTAN PO SCH (12:00)
--- NOTE | 2019-06-27 12:38 | NM ---
Cardiolite cardiac scan with Lexiscan Technique: I have data stating the patient was stressed utilizing Lexiscan protocol. Stress dose of technetium 99m Cardiolite was 11.8 mCi. Rest dose was 30.7 mCi. SPECT imaging was obtained 3 planes for both portions of the study. Study could not be gated due to atrial fibrillation. Low-dose chest CT performed to allow for attenuation correction. Comparison: No previous cardiac study. Findings: Slightly diminished activity is seen within the inferior wall which is most likely due to mild diaphragmatic attenuation. Activity within the left ventricular myocardium otherwise shows no fixed or reversible type defects. Study could not be gated and therefore no ejection fraction or wall thickening evaluation can be performed. Impression: 1. Diaphragmatic attenuation. 2. Nothing is seen to indicate reversible ischemia. Diagnostic code #2 This report was dictated in MDT
[2019-06-27] MEDS: Simvastatin 20 MG Tab PO SCH (21:14)
[2019-06-28] MEDS ORDERED: Metoprolol Succinate 25 MG Tab.ER PO SCH (09:15)
[2019-06-28] MEDS: Apixaban 5 MG Tab PO SCH (09:49)
[2019-06-28] MEDS: Aspirin 81 MG Tab.Chew PO SCH (09:49)
[2019-06-28] MEDS: VALSARTAN PO SCH (09:53)
[2019-06-28] MEDS: Spironolactone 25 MG Tab PO SCH (10:09)
[2019-06-28] MEDS: acetaZOLAMIDE 250 MG Tab PO SCH (10:10)
[2019-06-28] MEDS: NEBIVOLOL HCL 10 MG PO SCH (13:20)
--- NOTE | 2019-06-28 13:53 | PCM.DCSUM1 ---
Discharge Summary - Hospital Course HPI Initial Comments: Michael Fitch is a 63 yo male who presented to ED on 06/25/2019 reporting vision changes and lightheadedness. He states that he began having symptoms the day prior and had a presyncopal episode. Reports he has been lightheaded since then. States his vision has been blurry and he loses letters at the edge of the page. Denies headache, chest pain, shortness of breath, numbness, tingling , weakness, fever, chills, cough, congestion, runny nose, stef pain, nausea, vomiting. Reports this is never happened to him before. He does have a history of hypertension and is medicated for this. Denies any prior [place]. 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 He reports that he has not been taking his potassium though because he feels like it has been normal. In the ED he was afebrile with mild leukocytosis. Troponin was negative and TSH was normal. He was noted to have A. fib on the lunchroom monitor with sinus pauses. Longest was 3 seconds. Does have a right bundle branch block. He has no history of A. fib as far as he is aware. Head CT is obtained showing a small low-density finding within the cortex of the posterior left occipital lobe. This could represent a fairly recent infarct. Brain MRI with and without contrast is recommended. And his findings which are most likely chronic and no acute intracranial abnormality are also noted. 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 He also has small vessel ischemic demyelination changes but no abnormal enhancement is seen. Chest x-ray is obtained showing basilar atelectasis but nothing acute. Dr. Herr, neurologist with [facility] in [place] was contacted and would like the patient started on aspirin. He would like cardiology involved as well. Dr. Killian, limited radiology technician with [facility] contacted and recommends having the patient's Bystolic to start. If that does not help he thinks the patient can come off it and that it is likely not needed at this time. He does not feel the patient needs to be transferred to [place]. He carries a history of hypertension and hypokalemic periodic paralysis. Full code. He does not have a PCP locally. He is subsequently admitted observation status to the medical floor on telemetry for monitoring while his medications are adjusted. Diagnosis: Stroke: No - Discharge Data Discharge Date: 06/28/19 Discharge Disposition: Home, Self-Care 01 Condition: Good - Referral to Home Health Primary Care Physician: PCP None - Discharge Diagnosis/Problem(s) (1) Atrial fibrillation SNOMED Code(s): 76193590 ICD Code: I48.91 - UNSPECIFIED ATRIAL FIBRILLATION Status: Acute Current Visit: Yes Qualifiers: Atrial fibrillation type: unspecified Qualified Code(s): I48.91 - Unspecified atrial fibrillation (2) CVA (cerebral vascular accident) SNOMED Code(s): 650909425 ICD Code: I63.9 - CEREBRAL INFARCTION, UNSPECIFIED Status: Acute Priority : High Current Visit: Yes Qualifiers: CVA mechanism: unspecified Qualified Code(s): I63.9 - Cerebral infarction, unspecified (3) New onset a-fib SNOMED Code(s): 64926164 ICD Code: I48.91 - UNSPECIFIED ATRIAL FIBRILLATION Status: Acute Priority : High Current Visit: Yes - Patient Summary/Data Consults: Consultations 06/26/19 14:00 Consult to Occupational Therapy [OT Evaluation and Treatment] [CONS] Routine PT Evaluation and Treatment [CONS] Routine Hospital Course: CVA (cerebral vascular accident) New onset a-fib Encounter for medication adjustment Sinus pause Vision impairment Reports symptoms started on 06/24/19 with near syncopal episode No neurological deficits however vision changes with blurry vision and difficulty peripheral vision MRI in ED shows abnormal diffusion within the cortex of left posterior occipital lobe compatible with small irreversible cortical infarct Repots recent intentional weight gain and concerns over strength of medications Troponin negative in ED Denies any infectious symptoms Dr. Killian, cardiology contacted in ED and recommends halving dosage of Bystolic under monitorization Dr. Linda, Neurologist contacted in ED and recommends giving patient aspirin Reports recent 40lb intentional weight loss Echo obtained 06/26/19 * LVEF, by visual estimation, is 45-50% * Mildly decreased left ventricular systolic function * Mild concentric left ventricular hypertrophy * Mildly dilated left atrium * Trace mitral valve regurgitation * Trace tricuspid valve regurgitation * The study was performed with the patient in atrial fibrillation/flutter PLAN - Telemetry - continued A-fib with rate controlled. - Adjust home medications - Stop Bystolic - Start ASA 81mg - Patient denies any deficits, No need for JACKERMAN eval or PT/OT at this time - Lipid panel shows mildly elevated LDL, Triglycerides and HDL WNL - [id number] score: 3 moderate-high risk - Continue Eliquis BID - Lipitor 20 mg daily as outpatient - Neuro checks as ordered - Start Toprol XL 25 mg daily. May need to increase as outpatient depending on blood pressure. - Stress test negative - Repeat troponin negative, CK-MB 11.9 - Normal CK Hypokalemic periodic paralysis On home potassium supplementation and Acetazolamide Has not been taking home potassium as he feels like he has not been low in some time Potassium on high end of normal so far PLAN - Monitor Labs - Potassium mid 4s during admission Hypotension History of Hypertension On home Spironolactone, Hold valsartan. May consider restarting as outpatient Has been low at times BP improved overnight - Patient Instructions Diet: Heart Healthy Diet Activity: As Tolerated Driving: May Drive Today Showering/Bathing: May Shower Other/Special Instructions: Establish with PCP and follow up next week. - Discharge Plan *PRESCRIPTION DRUG MONITORING PROGRAM REVIEWED*: No *COPY OF PRESCRIPTION DRUG MONITORING REPORT IN PATIENT CARLA: No Prescriptions/Med Rec: Apixaban [Eliquis] 5 mg PO BID #60 tablet atorvaSTATin Calcium [Lipitor] 20 mg PO DAILY #30 tablet Metoprolol Succinate [Toprol XL] 25 mg PO DAILY #30 tab.er Home Medications: Home Meds Potassium Chloride 10 meq PO DAILY 06/25/19 [History] Spironolactone [Aldactone] 25 mg PO DAILY 06/25/19 [History] acetaZOLAMIDE [Acetazolamide] 250 mg PO DAILY 06/25/19 [History] Apixaban [Eliquis] 5 mg PO BID #60 tablet 06/28/19 [Rx] Aspirin 81 mg PO DAILY tab.chew 06/28/19 [Rx] Metoprolol Succinate [Toprol XL] 25 mg PO DAILY #30 tab.er 06/28/19 [Rx] atorvaSTATin Calcium [Lipitor] 20 mg PO DAILY #30 tablet 06/28/19 [Rx] Oxygen Therapy Mode: Room Air Patient Handouts: Stroke Prevention, [id number], Stroke Prevention, Atrial Fibrillation, [id number], Preventing Atrial Fibrillation-Related Stroke - Discharge Summary/Plan Comment DC Time >30 min.: Yes Discharge Summary/Plan Comment: Restart patient's Bystolic and switched him to Toprol-XL for his decreased ejection fraction. Eliquis 5 mg twice daily started Aspirin 81 mg daily. Valsartan has been held because of hypotension. Continue spironolactone and Diamox for his hypokalemic periodic paralysis Follow-up with primary care next week. - General Info Date of Service: 06/28/19 Admission Dx/Problem (Free Text: Admission Diagnosis/Problem Admission Diagnosis/Problem Cardiac arrhythmia Subjective Update: Patient is feeling much better today. His energy has returned. His oral intake is good. Functional Status: Reports: Pain Controlled - Review of Systems General: Reports: No Symptoms HEENT: Reports: No Symptoms Pulmonary: Reports: No Symptoms Cardiovascular: Reports: No Symptoms Gastrointestinal: Reports: No Symptoms Musculoskeletal: Reports: No Symptoms Psychiatric: Reports: No Symptoms - Patient Data Vitals - Most Recent: Last Vital Signs Temp 98.1 F 06/28/19 13:12 Pulse 79 06/28/19 13:12 Resp 12 06/28/19 13:12 BP 114/77 06/28/19 13:12 Pulse Ox 94 L 06/28/19 13:12 Weight - Most Recent: 260 lb 4.8 oz I&O - Last 24 hours: Intake & Output 06/27/19 06/28/19 06/28/19 22:59 06:59 14:59 Intake Total 1100 2000 Output Total 1700 2000 Balance -600 0 Lab Results - Last 24 hrs: Laboratory Results - last 24 hr 06/28/19 06/28/19 Range/Units 04:44 04:44 WBC 8.90 (4.23-9.07) K/mm3 RBC 5.01 (4.63-6.08) M/mm3 Hgb 16.2 (13.7-17.5) gm/dl Hct 49.2 (40.1-51.0) % MCV 98.2 H (79.0-92.2) fl MCH 32.3 H (25.7-32.2) pg MCHC 32.9 (32.2-35.5) g/dl RDW Std Deviation 53.7 H (35.1-43.9) fL Plt Count 338 H (163-337) K/mm3 MPV 11.1 (9.4-12.3) fl Neut % (Auto) 49.5 (34.0-67.9) % Lymph % (Auto) 25.2 (21.8-53.1) % [place] % (Auto) 16.5 H (5.3-12.2) % Eos % (Auto) 7.8 H (0.8-7.0) Baso % (Auto) 0.9 (0.1-1.2) % Neut # (Auto) 4.41 (1.78-5.38) K/mm3 Lymph # (Auto) 2.24 (1.32-3.57) K/mm3 [place] # (Auto) 1.47 H (0.30-0.82) K/mm3 Eos # (Auto) 0.69 H (0.04-0.54) K/mm3 Baso # (Auto) 0.08 (0.01-0.08) K/mm3 Manual Slide Review Abnormal smear Sodium 139 (136-145) mEq/L Potassium 4.5 (3.5-5.1) mEq/L Chloride 104 (98-107) mEq/L Carbon Dioxide 28 (21-32) mEq/L Anion Gap 11.5 (5-15) BUN 21 H (7-18) mg/dL Creatinine 0.6 L (0.7-1.3) mg/dL Est Cr Clr Drug Dosing 140.11 mL/min Estimated GFR (MDRD) > 60 (>60) mL/min BUN/Creatinine Ratio 35.0 H (14-18) Glucose 101 (80-115) mg/dL Calcium 8.9 (8.5-10.1) mg/dL Magnesium 1.8 (1.8-2.4) mg/dl Med Orders - Current: Current Medications Acetaminophen (Tylenol) 650 mg PO Q4H PRN PRN Reason: Pain (Mild 1-3)/fever Acetazolamide (Diamox) 250 mg PO DAILY [facility] Last Admin: 06/28/19 10:10 Dose: Not Given Apixaban (Eliquis) 5 mg PO BID [facility] Last Admin: 06/28/19 09:49 Dose: 5 mg Aspirin (Aspirin) 81 mg PO DAILY [facility] Last Admin: 06/28/19 09:49 Dose: 81 mg Metoprolol Succinate (Toprol Xl) 25 mg PO DAILY [facility] Last Admin: 06/28/19 09:49 Dose: 25 mg Metoprolol Tartrate (Lopressor) 5 mg IVPUSH Q4H PRN PRN Reason: Tachycardia Valsartan [Valsartan ] 160 Mg = 1/2 Tab Of 320 Mg Patient' s Own Med 0 each PO DAILY [facility] Last Admin: 06/28/19 09:53 Dose: 160 each Simvastatin (Zocor) 20 mg PO BEDTIME [facility] Last Admin: 06/27/19 21:14 Dose: 20 mg Sodium Chloride (Saline Flush) 20 ml FLUSH ASDIRECTED [facility] Last Admin: 06/25/19 10:44 Dose: 20 ml Spironolactone (Aldactone) 25 mg PO DAILY [facility] Last Admin: 06/28/19 10:09 Dose: Not Given Discontinued Medications Aspirin (Aspirin) 324 mg PO ONETIME ONE Stop: 06/25/19 13:28 Last Admin: 06/25/19 13:38 Dose: 324 mg Aspirin (Ecotrin) 325 mg PO DAILY [facility] Last Admin: 06/26/19 08:36 Dose: 325 mg Gadobenate Dimeglumine (Multihance) 20 ml IVPUSH ONETIME ONE Stop: 06/25/19 10:04 Last Admin: 06/25/19 10:44 Dose: 20 ml Lactated Ringer's (Ringers, Lactated) 500 mls @ 500 mls/hr IV .BOLUS ONE Stop: 06/26/19 21:38 Last Admin: 06/26/19 21:00 Dose: 500 mls/hr Lactated Ringer's (Ringers, Lactated) 500 mls @ 999 mls/hr IV .BOLUS ONE Stop: 06/27/19 07:53 Last Admin: 06/27/19 07:31 Dose: 999 mls/hr Influenza Virus Vaccine (Pharmacy To Dose - Influenza Vaccine) 0 each IM ONETIME ONE Stop: 06/25/19 15:05 Influenza Virus Vaccine (Fluzone Quad Syringe) 60 mcg IM .ONCE ONE Stop: 06/25/19 15:31 Nebivolol Hcl 10 Mg Patient's Own Med 0 each PO DAILY [facility] Last Admin: 06/26/19 09:31 Dose: Not Given Acetazolamide 250 Mg Patient's Own Med 0 each PO DAILY [facility] Last Admin: 06/26/19 09:31 Dose: Not Given Nebivolol Hcl 10 Mg Patient's Own Med 0 each PO DAILY@1200 [facility] Last Admin: 06/28/19 13:20 Dose: Not Given Regadenoson (Lexiscan) 0.4 mg IVPUSH ONETIME ONE Stop: 06/27/19 07:02 Last Admin: 06/27/19 07:04 Dose: 0.4 mg Sodium Chloride (Saline Flush) 10 ml FLUSH ASDIRECTED PRN PRN Reason: Keep Vein Open Last Admin: 06/25/19 09:18 Dose: 10 ml Spironolactone (Aldactone) 25 mg PO DAILY [facility] Last Admin: 06/26/19 09:29 Dose: Not Given - Exam General: Reports: Alert, Oriented HEENT: Reports: Pupils Equal, Mucous Membr. Moist/[place] Neck: Reports: Supple Lungs: Reports: Clear to Auscultation, Normal Respiratory Effort Cardiovascular: Reports: Irregular Rhythm. Denies: Regular Rate GI/Abdominal Exam: Normal Bowel Sounds, Soft, Non-Tender, No Organomegaly, No Distention, No Abnormal Bruit, No Mass Back Exam: Reports: Normal Inspection Extremities: Normal Inspection, Normal Range of Motion, Non-Tender, No Pedal Edema, Normal Capillary Refill Neurological: Reports: No New Focal Deficit Psy/Mental Status: Reports: Alert, Normal Affect, Normal Mood
[2019-06-28] MEDS ORDERED: FLU Vacc QS2019-20(6MOS+)/PF 60 MCG/0.5 ML SYRINGE IM ONE (16:00)
[2019-06-29] MEDS ORDERED: FLU Vacc QS2019-20(6MOS+)/PF 60 MCG/0.5 ML SYRINGE IM ONE (09:00)
== END 2019-06-28 18:06 | disposition home or self-care (01) | DRG 201 ==
LOC: JD.ED 08:46 → JD.MS 14:19 → OBSVTOIN 06-26 09:01
PROVIDERS: ADMIT Internal Medicine; ATTEND Internal Medicine
PROC: 4A12XM4 Monitoring of Cardiac Stress, External Approach (ICD-10-PCS; principal; 2019-06-27)
DX: I48.91 Unspecified atrial fibrillation (principal); I63.9 Cerebral infarction, unspecified; I45.5 Other specified heart block; G72.3 Periodic paralysis; I10 Essential (primary) hypertension; I08.1 Rheumatic disorders of both mitral and tricuspid valves; H54.7 Unspecified visual loss; Z51.89 Encounter for other specified aftercare; Z95.9 Presence of cardiac and vascular implant and graft, unspecified
CPT/HCPCS: 36415; 70450; 70450-26; 70553; 70553-26; 71045; 71045-26; 78452; 78452-26; 80048; 80053; 80061; 82550; 82553; 83735; 84100; 84443; 84484; 85025; 85610; 85730; 90686; 93005; 93010; 93017; 93306; 97110-GP; 97162-GP; 97165-GO; 97530-GO; 99220; 99232; 99239; 99285; 99285-25; A9270-GY; A9500; A9577; G0008; G0378; J2785; J7120

== ENCOUNTER 2020-09-28 19:10 | Emergency (ER) | payer BC, OTHER ==
--- NOTE | 2020-09-28 19:32 | EDM.PDOC ---
ED HPI GENERAL MEDICAL PROBLEM - General Chief Complaint: Neuro Symptoms/Deficits Stated Complaint: STROKE SYMPTOMS Time Seen by Provider: 09/28/20 19:10 - History of Present Illness INITIAL COMMENTS - FREE TEXT/NARRATIVE: 65-year-old male presents emergency room with weakness difficulty speaking and confusion. Last known normal was between 4:00 and 5:00 this afternoon. Patient has a history of a CVA in the past he has a history of A. fib he was taking Xarelto but stopped it about a month ago because he could not afford it. The patient also has hypokalemic paralysis he has permanent weakness especially in his lower legs with this. The patient was noted at home after work today to be more confused not speaking as good as he normally should. He is using his upper extremities okay but his lower extremities which are chronically weak they did not really appreciate much of a difference there. 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 He was taking Xarelto up until about a month ago and he had to stop it because he can no longer afford it - Related Data Allergies Allergy/AdvReac Type Severity Reaction Status Date / Time No Known Allergies Allergy Verified 09/28/20 19:20 Home Meds: Home Meds Potassium Chloride 10 meq PO DAILY 06/25/19 [History] acetaZOLAMIDE [Acetazolamide] 250 mg PO DAILY 06/25/19 [History] Metoprolol Succinate [Toprol XL] 25 mg PO DAILY #30 tab.er 06/28/19 [Rx] Rivaroxaban [Xarelto] 20 mg PO DAILY #30 tablet 06/28/19 [Rx] atorvaSTATin Calcium [Lipitor] 20 mg PO DAILY #30 tablet 06/28/19 [Rx] Past Medical History HEENT History: Reports: Impaired Vision Other HEENT History: wears glasses Cardiovascular History: Reports: Hypertension Endocrine/Metabolic History: Reports: Other (See Below) Other Endocrine/Metabolic History: Hypokalemic periodic paralysis - Infectious Disease History Infectious Disease History: Reports: Chicken Pox - Past Surgical History HEENT Surgical History: Reports: Oral Surgery Other HEENT Surgeries/Procedures: wisdom Musculoskeletal Surgical History: Reports: Hip Replacement, Shoulder Surgery Other Musculoskeletal Surgeries/Procedures:: Right hip replacement, rotator cuff surgery. Social & Family History - Caffeine Use Caffeine Use: Reports: Coffee Other Caffeine Use: 3 cups daily ED ROS GENERAL - Review of Systems Review Of Systems: See Below Constitutional: Denies: Fever, Chills HEENT: Denies: No Symptoms Respiratory: Denies: No Symptoms Cardiovascular: Denies: No Symptoms Endocrine: Denies: No Symptoms GI/Abdominal: Denies: No Symptoms Neurological: Reports: Trouble Speaking, Difficulty Walking, Other (Has increased weakness but he has chronic weakness in his lower extremities.) Psychiatric: Reports: No Symptoms ED EXAM, NEURO - Physical Exam Exam: See Below Exam Limited By: No Limitations General Appearance: Alert, Other (Trouble with his speech and has trouble moving his lower extremities much of this is chronic) Eye Exam: Bilateral Eye: PERRL Ears: Normal External Exam, Normal Canal, Hearing Grossly Normal, Normal TMs Nose: Normal Inspection, Normal Mucosa, No Blood Throat/Mouth: Normal Inspection, Normal Lips, Normal Teeth, Normal Gums, Normal Oropharynx, Normal Voice, No Airway Compromise Head Exam: Atraumatic, Normocephalic Neck: Normal Inspection, Supple, Non-Tender, Full Range of Motion Respiratory/Chest: No Respiratory Distress, Lungs Clear, Normal Breath Sounds GI/Abdominal: Normal Bowel Sounds, Soft, Non-Tender, No Organomegaly Neurological: Alert, Other (Patient has no discernible weakness in the upper extremities speech is more broken up than usual. Both his lower extremities are weak this is hard to sort out and much of this is chronic secondary to his hypokalemic periodic paralysis) Back Exam: Normal Inspection. No: CVA Tenderness (L), CVA Tenderness (R) Psychiatric: Normal Affect, Normal Mood Skin Exam: Warm, Dry, Intact #1 Interpretation EKG Date: 09/28/20 Rhythm: A-Fib Rate (Beats/Min): 61 [place]: LAD-Left [place] Deviation P-Wave: Absent (Flutter waves rate 370 versus artifact) QRS: RBBB ST-T: Normal QT: Normal Comparison: No Change (No significant change from 06/25/2019) EKG Interpretation Comments: Abnormal EKG Course - Vital Signs Last Recorded V/S: Last Vital Signs Temp 36.2 C 09/28/20 20:45 Pulse 57 L 09/28/20 20:45 Resp 16 09/28/20 20:45 BP 139/104 H 09/28/20 20:45 Pulse Ox 97 09/28/20 20:45 - Orders/Labs/Meds Orders: Active Orders 24 hr Category Date Time Status UA RFX JANIE AND CULT IF INDIC [URIN] Stat Lab 09/28/20 19:28 Ordered Labs: Laboratory Tests 09/28/20 09/28/20 09/28/20 Range/Units 19:19 19:19 19:19 WBC 9.83 H (4.23-9.07) K/mm3 RBC 5.30 (4.63-6.08) M/mm3 Hgb 16.7 (13.7-17.5) gm/dl Hct 51.8 H (40.1-51.0) % MCV 97.7 H (79.0-92.2) fl MCH 31.5 (25.7-32.2) pg MCHC 32.2 (32.2-35.5) g/dl RDW Std Deviation 55.7 H (35.1-43.9) fL Plt Count 374 H (163-337) K/mm3 MPV 10.5 (9.4-12.3) fl Neut % (Auto) 45.5 (34.0-67.9) % Lymph % (Auto) 35.7 (21.8-53.1) % [place] % (Auto) 12.7 H (5.3-12.2) % Eos % (Auto) 4.9 (0.8-7.0) Baso % (Auto) 1.0 (0.1-1.2) % Neut # (Auto) 4.47 (1.78-5.38) K/mm3 Lymph # (Auto) 3.51 (1.32-3.57) K/mm3 [place] # (Auto) 1.25 H (0.30-0.82) K/mm3 Eos # (Auto) 0.48 (0.04-0.54) K/mm3 Baso # (Auto) 0.10 H (0.01-0.08) K/mm3 PT 11.6 (9.7-12.0) SECONDS INR 1.09 APTT 27.4 (21.7-31.4) SECONDS Sodium 140 (136-145) mEq/L Potassium 4.0 (3.5-5.1) mEq/L Chloride 105 (98-107) mEq/L Carbon Dioxide 25 (21-32) mEq/L Anion Gap 14.0 (5-15) BUN 11 (7-18) mg/dL Creatinine 0.6 L (0.7-1.3) mg/dL Est Cr Clr Drug Dosing 136.52 mL/min Estimated GFR (MDRD) > 60 (>60) mL/min BUN/Creatinine Ratio 18.3 H (14-18) Glucose 143 H (70-99) mg/dL Calcium 8.9 (8.5-10.1) mg/dL Magnesium 1.7 L (1.8-2.4) mg/dL Total Bilirubin 1.0 (0.2-1.0) mg/dL AST 28 (15-37) U/L ALT 26 (16-63) U/L Alkaline Phosphatase 100 (46-116) U/L Troponin I < 0.017 (0.00-0.056) ng/mL Total Protein 7.0 (6.4-8.2) g/dl Albumin 3.6 (3.4-5.0) g/dl Globulin 3.4 gm/dL Albumin/Globulin Ratio 1.1 (1-2) SARS-CoV-2 RNA (MEGAN) (NEGATIVE) 09/28/20 Range/Units 19:38 WBC (4.23-9.07) K/mm3 RBC (4.63-6.08) M/mm3 Hgb (13.7-17.5) gm/dl Hct (40.1-51.0) % MCV (79.0-92.2) fl MCH (25.7-32.2) pg MCHC (32.2-35.5) g/dl RDW Std Deviation (35.1-43.9) fL Plt Count (163-337) K/mm3 MPV (9.4-12.3) fl Neut % (Auto) (34.0-67.9) % Lymph % (Auto) (21.8-53.1) % [place] % (Auto) (5.3-12.2) % Eos % (Auto) (0.8-7.0) Baso % (Auto) (0.1-1.2) % Neut # (Auto) (1.78-5.38) K/mm3 Lymph # (Auto) (1.32-3.57) K/mm3 [place] # (Auto) (0.30-0.82) K/mm3 Eos # (Auto) (0.04-0.54) K/mm3 Baso # (Auto) (0.01-0.08) K/mm3 PT (9.7-12.0) SECONDS INR APTT (21.7-31.4) SECONDS Sodium (136-145) mEq/L Potassium (3.5-5.1) mEq/L Chloride (98-107) mEq/L Carbon Dioxide (21-32) mEq/L Anion Gap (5-15) BUN (7-18) mg/dL Creatinine (0.7-1.3) mg/dL Est Cr Clr Drug Dosing mL/min Estimated GFR (MDRD) (>60) mL/min BUN/Creatinine Ratio (14-18) Glucose (70-99) mg/dL Calcium (8.5-10.1) mg/dL Magnesium (1.8-2.4) mg/dL Total Bilirubin (0.2-1.0) mg/dL AST (15-37) U/L ALT (16-63) U/L Alkaline Phosphatase (46-116) U/L Troponin I (0.00-0.056) ng/mL Total Protein (6.4-8.2) g/dl Albumin (3.4-5.0) g/dl Globulin gm/dL Albumin/Globulin Ratio (1-2) SARS-CoV-2 RNA (MEGAN) Negative (NEGATIVE) - Re-Assessments/Exams Free Text/Narrative Re-Assessment/Exam: 09/28/20 20:56 History and physical is hard to sort out his son clearly saw the patient at 4 PM and sometime between 4 PM and 5 PM the patient had increased speech difficulties and worsening weakness in the lower extremities which is hard to assess. CT shows an acute stroke in the right parietal region no bleed this is a moderate size stroke that for the time being should be showing up quite so soon. I went searching for bed availability and nothing is available in [place] I did check with [facility] in [facility]. I need kindly agreed to accept the patient. Case was discussed with Dr. Jacobs, neurologist on-call who after some work was able to see the CT. thrombolytics were considered with this patient however with the stroke clearly been visualized on the CT and the timing uncertain this was not deemed a safe option Departure - Departure Time of Disposition: 20:25 Disposition: DC/Tfer to Acute Hospital 02 Clinical Impression: CVA (cerebral vascular accident) Qualifiers: CVA mechanism: unspecified Qualified Code(s): I63.9 - Cerebral infarction, unspecified - Discharge Information Referrals: PCP,Unobtain [Primary Care Provider] - Forms: ED Department Discharge Sepsis Event Note (ED) - Focused Exam Vital Signs: Vital Signs Temp Pulse Resp BP Pulse Ox 09/28/20 20:45 36.2 C 57 L 16 139/104 H 97 09/28/20 19:24 36.2 C 80 18 180/112 H 95 - My Orders Last 24 Hours: My Active Orders 09/28/20 19:28 UA RFX JANIE AND CULT IF INDIC [URIN] Stat - Assessment/Plan Last 24 Hours: My Active Orders 09/28/20 19:28 UA RFX JANIE AND CULT IF INDIC [URIN] Stat
--- NOTE | 2020-09-28 19:50 | CT ---
Head CT Technique: Multiple axial sections through the brain were obtained. Intravenous contrast was not utilized. Reconstructed coronal and sagittal images were obtained. Comparison: Prior MRI brain and head CT exam of 06/25/19. Findings: Well-defined low density area is noted within the posterior left occipital lobe compatible with old infarct. Slight diminished density is seen within the right temporal and parietal region suspicious for an acute infarct measuring approximately 4.7 cm. No other abnormal parenchymal densities are seen. No evidence of intracranial hemorrhage is seen. No midline shift or mass-effect is appreciated. Bone window settings were reviewed which show slight mucosal thickening within the right mastoid sinus. Other mastoid sinuses are clear. No acute paranasal sinus findings are seen. No acute calvarial abnormality is seen. Impression: 1. Findings highly suspicious for acute infarct within the right temporoparietal region with measurements of 4.7 cm. 2. Other findings as noted above which are felt to be chronic. 3. No acute intracranial hemorrhage is seen. Diagnostic code #5
--- NOTE | 2020-09-28 20:17 | CR ---
Chest: Frontal view of the chest was obtained. Comparison: Prior chest x-ray of 06/25/19. Left hemidiaphragm is elevated which is chronic. Heart size is normal. Upper mediastinum is normal. Lungs are clear with no acute parenchymal change. Bony structures show nothing acute. Impression: 1. Nothing acute is seen on frontal chest x-ray. Diagnostic code #1
== END 2020-09-28 21:30 ==
LOC: JD.ED 19:10
DX: I63.9 Cerebral infarction, unspecified (principal); I48.91 Unspecified atrial fibrillation; I10 Essential (primary) hypertension; Z86.73 Personal history of transient ischemic attack (TIA), and cerebral infarction without residual deficits; Z79.01 Long term (current) use of anticoagulants; Z20.822 Contact with and (suspected) exposure to COVID-19
CPT/HCPCS: 36415; 70450; 70450-26; 71045; 71045-26; 80053; 83735; 84484; 85025; 85610; 85730; 93005; 93010; 99285; 99285-25; U0002

== ENCOUNTER 2020-12-19 09:01 | Emergency (ER) | payer BC, OTHER ==
--- NOTE | 2020-12-19 10:12 | EDM.PDOC ---
<LitaMaria Dolores V - Last Filed: 12/19/20 14:21> ED HPI GENERAL MEDICAL PROBLEM - General Chief Complaint: Respiratory Problem Stated Complaint: [facility] Time Seen by Provider: 12/19/20 10:00 - Related Data Allergies Allergy/AdvReac Type Severity Reaction Status Date / Time No Known Allergies Allergy Verified 09/28/20 19:20 Home Meds: Home Meds Potassium Chloride 20 meq PO DAILY 06/25/19 [History] atorvaSTATin Calcium [Lipitor] 20 mg PO DAILY #30 tablet 06/28/19 [Rx] Apixaban [Eliquis] 5 mg PO BID 12/19/20 [History] Metoprolol Succinate [Toprol XL] 50 mg PO DAILY 12/19/20 [History] Valsartan [Diovan] 320 mg PO DAILY 12/19/20 [History] Departure - Departure Time of Disposition: 14:22 Disposition: Home, Self-Care 01 Condition: Good Clinical Impression: COVID-19 - Discharge Information *PRESCRIPTION DRUG MONITORING PROGRAM REVIEWED*: No *COPY OF PRESCRIPTION DRUG MONITORING REPORT IN PATIENT CARLA: No Instructions: Prone Position Therapy, 10 Things You Can Do to Manage Your COVID-19 Symptoms at Home - [facility] (08/20/2020) Referrals: PCP,None [Primary Care Provider] - Forms: ED Department Discharge Additional Instructions: You were seen in the ER today for ongoing and/or worsening respiratory symptoms. You did test positive for COVID-19 at today's visit. Your chest x-ray showed minimal signs of viral pneumonia; typical for COVID-19 at this time. Your oxygen levels were great at 93-94% on room air. Other laboratory evaluation was on par for ongoing COVID-19 illness. You were given IV monoclonal antibody therapy at today's visit, this medication is thought to work by making you a little less sick, and helps to decrease the length of time that you are sick. Please try to increase your oral fluid intake, and eat multiple small meals throughout the day, to keep yourself healthy. You need to keep yourself nourished in order to fight off this disease. You can try a liquid diet like gatorade/powerade as well to get your electrolytes. You may take 500 mg Tylenol every hours 6 hours for pain/fever relief. Do not exceed 4000 mg Tylenol in a 24-hour time span. However, running a fever is your body's natural response to illness, and it allows the body to develop antibodies to disease, we are recommending trying to limit the use of Tylenol as much as possible to allow your body's natural immune response. Recommend you obtain a pulse oximeter and monitor your oxygen levels at home, you should place the monitor on your finger, and sit in a calm, quiet position for a few minutes and then record the number that is on the screen. If this consistently below 90% on room air without movement, this would be cause for co nanin to come back to the hospital for further management of your COVID-19 disease. Please follow all guidance set forth from [facility], regarding isolation purposes for your disease process. General isolation times are 10 days from when you started being symptomatic. <Collins Mejia - Last Filed: 12/19/20 20:30> ED HPI GENERAL MEDICAL PROBLEM - History of Present Illness INITIAL COMMENTS - FREE TEXT/NARRATIVE: 65-year-old male presents the emergency room with a 7-day history of feeling quite poor. Patient has had aches no loss of taste or smell has a cough.. He said really in the decreased energy. He has not had the Covid vaccine. Remarkable history is for a stroke this summer he has done well since that time however. He has intermittent diarrhea he is completely lost his appetite no significant nausea or vomiting however. He is not aware of any fevers or chills. He has a dry nonproductive cough he is not aware of any shortness of breath however. Past Medical History HEENT History: Reports: Impaired Vision Other HEENT History: wears glasses Cardiovascular History: Reports: Hypertension Respiratory History: Reports: None Genitourinary History: Reports: None Musculoskeletal History: Reports: None Neurological History: Reports: CVA Other Neuro History: 06/2019 CVA w/ deficits Psychiatric History: Reports: None Endocrine/Metabolic History: Reports: Other (See Below) Other Endocrine/Metabolic History: Hypokalemic periodic paralysis Hematologic History: Reports: None Immunologic History: Reports: None Oncologic (Cancer) History: Reports: None Dermatologic History: Reports: None - Infectious Disease History Infectious Disease History: Reports: Chicken Pox - Past Surgical History HEENT Surgical History: Reports: Oral Surgery Other HEENT Surgeries/Procedures: wisdom GI Surgical History: Reports: Other (See Below) Other GI Surgeries/Procedures: spleenectomy after horse accident in 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 Social & Family History - Family History Family Medical History: No Pertinent Family History - Tobacco Use Tobacco Use Status *Q: Never Tobacco User Second Hand Smoke Exposure: No - Caffeine Use Caffeine Use: Reports: Coffee Other Caffeine Use: 3 cups daily - Recreational Drug Use Recreational Drug Use: No ED ROS GENERAL - Review of Systems Review Of Systems: See Below Constitutional: Reports: Weakness, Fatigue HEENT: Reports: No Symptoms Respiratory: Reports: No Symptoms, Pleuritic Chest Pain, Cough. Denies: Shortness of Breath, Sputum, Hemoptysis Cardiovascular: Reports: No Symptoms Endocrine: Reports: No Symptoms GI/Abdominal: Reports: Diarrhea, Decreased Appetite : Reports: No Symptoms Musculoskeletal: Reports: Other (He has generalized achiness) Skin: Reports: No Symptoms Neurological: Reports: No Symptoms Psychiatric: Reports: No Symptoms Hematologic/Lymphatic: Reports: No Symptoms ED EXAM, GENERAL - Physical Exam Exam: See Below Exam Limited By: No Limitations General Appearance: Alert, No Apparent Distress Eye Exam: Bilateral Eye: Normal Inspection Ears: Normal External Exam, Normal Canal, Hearing Grossly Normal, Normal TMs Nose: Normal Inspection, Normal Mucosa, No Blood Throat/Mouth: Normal Inspection, Normal Lips, Normal Gums, Normal Oropharynx, Normal Voice, No Airway Compromise Head: Atraumatic, Normocephalic Neck: Normal Inspection, Supple, Non-Tender, Full Range of Motion. 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) ST-T: Normal QT: Normal Comparison: No Change (Significant change noted from 09/28/2020) EKG Interpretation Comments: Abnormal EKG Course - Vital Signs Last Recorded V/S: Last Vital Signs Temp 36.1 C 12/19/20 09:05 Pulse 98 12/19/20 14:41 Resp 16 12/19/20 14:41 BP 100/82 12/19/20 14:41 Pulse Ox 94 L 12/19/20 14:41 - Orders/Labs/Meds Labs: Laboratory Tests 12/19/20 12/19/20 12/19/20 Range/Units 09:10 09:10 09:10 WBC 5.28 (4.23-9.07) K/mm3 RBC 5.77 (4.63-6.08) M/mm3 Hgb 17.7 H (13.7-17.5) gm/dl Hct 53.5 H (40.1-51.0) % MCV 92.7 H D (79.0-92.2) fl MCH 30.7 (25.7-32.2) pg MCHC 33.1 (32.2-35.5) g/dl RDW Std Deviation 52.2 H (35.1-43.9) fL Plt Count 279 D (163-337) K/mm3 MPV 10.5 (9.4-12.3) fl Neut % (Auto) 52.4 (34.0-67.9) % Lymph % (Auto) 28.0 (21.8-53.1) % [place] % (Auto) 18.2 H (5.3-12.2) % Eos % (Auto) 0.2 L (0.8-7.0) Baso % (Auto) 0.8 (0.1-1.2) % Neut # (Auto) 2.77 (1.78-5.38) K/mm3 Lymph # (Auto) 1.48 (1.32-3.57) K/mm3 [place] # (Auto) 0.96 H (0.30-0.82) K/mm3 Eos # (Auto) 0.01 L (0.04-0.54) K/mm3 Baso # (Auto) 0.04 (0.01-0.08) K/mm3 Manual Slide Review Abnormal smear PT (9.7-12.0) SECONDS INR Sodium 133 L (136-145) mEq/L Potassium 4.8 (3.5-5.1) mEq/L Chloride 97 L (98-107) mEq/L Carbon Dioxide 24 (21-32) mEq/L Anion Gap 16.8 H (5-15) BUN 15 (7-18) mg/dL Creatinine 0.7 (0.7-1.3) mg/dL Est Cr Clr Drug Dosing 117.02 mL/min Estimated GFR (MDRD) > 60 (>60) mL/min BUN/Creatinine Ratio 21.4 H (14-18) Glucose 115 H (70-99) mg/dL Calcium 8.4 L (8.5-10.1) mg/dL Total Bilirubin 0.6 (0.2-1.0) mg/dL AST 114 H (15-37) U/L ALT 62 (16-63) U/L Alkaline Phosphatase 96 (46-116) U/L C-Reactive Protein (<1.0) mg/dL Total Protein 6.2 L (6.4-8.2) g/dl Albumin 3.0 L (3.4-5.0) g/dl Globulin 3.2 gm/dL Albumin/Globulin Ratio 0.9 L (1-2) Influenza Type A RNA Negative (NEGATIVE) Influenza Type B RNA Negative (NEGATIVE) SARS-CoV-2 RNA (MEGAN) Positive H (NEGATIVE) 12/19/20 12/19/20 Range/Units 09:10 09:25 WBC (4.23-9.07) K/mm3 RBC (4.63-6.08) M/mm3 Hgb (13.7-17.5) gm/dl Hct (40.1-51.0) % MCV (79.0-92.2) fl MCH (25.7-32.2) pg MCHC (32.2-35.5) g/dl RDW Std Deviation (35.1-43.9) fL Plt Count (163-337) K/mm3 MPV (9.4-12.3) fl Neut % (Auto) (34.0-67.9) % Lymph % (Auto) (21.8-53.1) % [place] % (Auto) (5.3-12.2) % Eos % (Auto) (0.8-7.0) Baso % (Auto) (0.1-1.2) % Neut # (Auto) (1.78-5.38) K/mm3 Lymph # (Auto) (1.32-3.57) K/mm3 [place] # (Auto) (0.30-0.82) K/mm3 Eos # (Auto) (0.04-0.54) K/mm3 Baso # (Auto) (0.01-0.08) K/mm3 Manual Slide Review PT 11.8 (9.7-12.0) SECONDS INR 1.07 Sodium (136-145) mEq/L Potassium (3.5-5.1) mEq/L Chloride (98-107) mEq/L Carbon Dioxide (21-32) mEq/L Anion Gap (5-15) BUN (7-18) mg/dL Creatinine (0.7-1.3) mg/dL Est Cr Clr Drug Dosing mL/min Estimated GFR (MDRD) (>60) mL/min BUN/Creatinine Ratio (14-18) Glucose (70-99) mg/dL Calcium (8.5-10.1) mg/dL Total Bilirubin (0.2-1.0) mg/dL AST (15-37) U/L ALT (16-63) U/L Alkaline Phosphatase (46-116) U/L C-Reactive Protein 5.6 H* (<1.0) mg/dL Total Protein (6.4-8.2) g/dl Albumin (3.4-5.0) g/dl Globulin gm/dL Albumin/Globulin Ratio (1-2) Influenza Type A RNA (NEGATIVE) Influenza Type B RNA (NEGATIVE) SARS-CoV-2 RNA (MEGAN) (NEGATIVE) Meds: Medications Discontinued Medications Generic Name Dose Route Start Last Admin Trade Name Freq PRN Reason Stop Dose Admin Diphenhydramine HCl 50 mg 12/19/20 11:17 Diphenhydramine 50 Mg/Ml Sdv IVPUSH ASDIRECTED PRN hypersensitivity reaction Epinephrine HCl 0.3 mg 12/19/20 11:17 Epinephrine 1 Mg/Ml Sdv IM ASDIRECTED PRN hypersensitivity reaction Famotidine 20 mg 12/19/20 11:17 Famotidine 20 Mg/2 Ml Sdv IVPUSH ASDIRECTED PRN hypersensitivity reaction Sodium Chloride 500 mls @ 999 mls/hr 12/19/20 11:06 12/19/20 11:15 Normal Saline IV 12/19/20 11:36 999 mls/hr .BOLUS ONE Administration Sodium Chloride 1,000 mls @ 125 mls/hr 11/14/21 11:15 Normal Saline IV ASDIRECTED HILL Bamlanivimab 700 mg/ 160 mls @ 310 mls/hr 12/19/20 11:45 12/19/20 11:47 Etesevimab 1,400 mg/ Sodium IV 12/19/20 12:15 310 mls/hr Chloride ONETIME ONE Administration Methylprednisolone Sodium Succinate 125 mg 12/19/20 11:17 Methylprednisolone Sodium Succinate 125 Mg/2 Ml Sdv IVPUSH ASDIRECTED PRN hypersensitivity reaction Sodium Chloride 30 ml 12/19/20 11:30 Sodium Chloride 0.9% 10 Ml Syringe FLUSH ASDIRECTED HILL - Re-Assessments/Exams Free Text/Narrative Re-Assessment/Exam: 12/19/20 11:24 We will give him gentle fluids. Had a long discussion about the pros and cons of Regeneron and they would like to give this a try. I spoke with the patient to provide information about REGEN-COV treatment. I offered them the Patient and Caregiver EUA REGEN-COV Fact Sheet to read and review. I stated the drug has been approved by an emergency use authorization (EUA} process and has not fully been FDA reviewed or approved. The patient meets the EUA requirements. I discussed there are other potential treatment options that are currently not FDA approved to treat COVID 19. Offered opportunity to ask questions and all questions were answered. The patient voiced understanding and agreed to proceed with treatment. 12/19/20 20:25 Was discharged by Maria Dolores London as I was occupied with other patients I did give the patient a home O2 monitor to keep an eye on this. Patient feels a lot better after getting some IV fluids and the monoclonal antibody treatment. Sepsis Event Note (ED) - Evaluation Sepsis Screening Result: No Definite Risk - Focused Exam Vital Signs: Vital Signs Temp Pulse Resp BP Pulse Ox 12/19/20 14:41 98 16 100/82 94 L 12/19/20 09:05 36.1 C 94 16 86/67 L 93 L
[2020-12-19 10:23] LABS: CORONAVIRUS COVID-19 NAA POSITIVE (NEGATIVE)
[2020-12-19] MEDS ORDERED: Sodium Chloride 0.9% 500 ML IV ONE (11:06)
[2020-12-19] MEDS ORDERED: Sodium Chloride 0.9% 1,000 ML IV SCH (11:15)
[2020-12-19] MEDS ORDERED: Famotidine 20 MG/2 ML SDV IVPUSH PRN (11:17)
[2020-12-19] MEDS ORDERED: EPINEPHrine 1 MG/ML SDV IM PRN (11:17)
[2020-12-19] MEDS ORDERED: diphenhydrAMINE 50 MG/ML SDV IVPUSH PRN (11:17)
[2020-12-19] MEDS ORDERED: methylPREDNISolone Sodium Succinate 125 MG/2 ML SDV IVPUSH PRN (11:17)
--- NOTE | 2020-12-19 11:28 | CR ---
Chest: Portable view of the chest was obtained. Comparison: Prior chest x-ray of 06/25/19 and 09/28/20. Left hemidiaphragm is elevated which is stable. Heart size is within normal limits. Upper mediastinum is within normal limits. Patchy increased density is seen within the right lung base. Lungs otherwise are clear. Prior left shoulder surgery is seen. Impression: 1. Increased density within the right lung base compatible with probable pneumonia, possibly COVID. 2. Other stable findings as noted above. Diagnostic code #3
[2020-12-19] MEDS ORDERED: Sodium Chloride 0.9% 10 ML Syringe FLUSH SCH (11:30)
[2020-12-19] MEDS ORDERED: Bamlanivimab 700 MG, ETESEVIMAB 1,400 MG in Sodium Chloride 0.9% 100 ML IV ONE (11:45)
== END 2020-12-19 14:50 | disposition home or self-care (01) ==
LOC: JD.ED 09:01
DX: U07.1 COVID-19 (principal); I10 Essential (primary) hypertension; I48.91 Unspecified atrial fibrillation; R94.31 Abnormal electrocardiogram [ECG] [EKG]; Z79.01 Long term (current) use of anticoagulants; Z79.899 Other long term (current) drug therapy
CPT/HCPCS: 0240U; 36415; 71045; 80053; 85025; 85610; 86140; 93005; 99285; J7030; M0245; Q0245

== ENCOUNTER 2021-11-17 06:26 | Emergency (ER) | payer BC ==
[2021-11-17] MEDS ORDERED: Morphine 4 MG/ML Syringe IVPUSH ONE ×3 (06:32→10:17)
[2021-11-17] MEDS ORDERED: Morphine 4 MG/ML Syringe ONE (06:34)
[2021-11-17] MEDS ORDERED: Lactated Ringers 1,000 ML ONE (09:27)
[2021-11-17] MEDS ORDERED: Morphine 2 MG/ML SYRINGE IVPUSH ONE (11:24)
== END 2021-11-17 11:50 | disposition home or self-care (01) ==
LOC: JD.ED 06:26
DX: S82.851A Displaced trimalleolar fracture of right lower leg, initial encounter for closed fracture (principal); G72.3 Periodic paralysis; R26.2 Difficulty in walking, not elsewhere classified; I10 Essential (primary) hypertension; Z79.899 Other long term (current) drug therapy; W19.XXXA Unspecified fall, initial encounter
CPT/HCPCS: 27818; 36415; 73590; 73600; 73620; 84132; 84443; 96374; 96376; 99284; J2270

== ENCOUNTER 2021-11-22 11:28 | Emergency (ER) | payer BC ==
[2021-11-22] MEDS ORDERED: Acetaminophen/HYDROcodone 325-5 MG Tab PO ONE (12:22)
== END 2021-11-22 15:35 | disposition home or self-care (01) ==
LOC: JD.ED 11:28
DX: M79.604 Pain in right leg (principal); I10 Essential (primary) hypertension; Z79.899 Other long term (current) drug therapy; Z79.01 Long term (current) use of anticoagulants
CPT/HCPCS: 73590; 93971; 99284; A9270

== ENCOUNTER 2021-12-01 08:47 | Day surgery (SDC) | payer BC ==
[~2021-12-01 08:47] MED LIST: Lactated Ringers 1,000 ML IV SCH; Lidocaine 1%/Sod Bicarbonate in NS 8.4% 1 ML Syringe IDERM PRN; Sodium Chloride 0.9% 10 ML Syringe FLUSH PRN; Sodium Chloride 0.9% 10 ML Syringe FLUSH SCH
[2021-12-01] MEDS ORDERED: Dexmedetomidine 200 MCG/2 ML SDV ONE (08:59)
[2021-12-01] MEDS ORDERED: Ropivacaine 0.5% 5 MG/ML 30 ML SDV ONE (08:59)
[2021-12-01] MEDS ORDERED: Bupivacaine 0.5% 10 ML SDV ONE (09:10)
[2021-12-01] MEDS ORDERED: fentaNYL 100 MCG/2 ML SDV ONE ×2 (09:41→13:56)
[2021-12-01] MEDS ORDERED: Midazolam 1 MG/ML 2 ML SDV ONE (09:42)
[2021-12-01 10:06] LABS: ESTIMATED GFR 107 mL/min (>60)
[2021-12-01] MEDS ORDERED: Bupivacaine 0.25% 10 ML SDV ONE (10:32)
[2021-12-01] MEDS ORDERED: Propofol 200 MG/20 ML SDV ONE ×3 (11:59→13:45)
[2021-12-01] MEDS ORDERED: Phenylephrine HCl In 0.9% NaCl 1 MG/10 ML Vial ONE (12:17)
[2021-12-01] MEDS ORDERED: Lidocaine 1% 2 ML ONE (12:17)
[2021-12-01] MEDS ORDERED: ceFAZolin 2 GM Vial ONE (12:43)
[2021-12-01] MEDS ORDERED: Lactated Ringers 1,000 ML ONE (13:55)
[2021-12-01] MEDS ORDERED: Ondansetron 4 MG/2 ML SDV ONE (13:56)
== END 2021-12-01 15:35 | disposition home or self-care (01) ==
LOC: JD.SDS 08:47
PROVIDERS: ATTEND Orthopaedic Surgery
DX: S82.841A Displaced bimalleolar fracture of right lower leg, initial encounter for closed fracture (principal); I10 Essential (primary) hypertension; I48.91 Unspecified atrial fibrillation; E87.6 Hypokalemia; E66.9 Obesity, unspecified; Z68.35 Body mass index [BMI] 35.0-35.9, adult; Z79.899 Other long term (current) drug therapy; Z98.890 Other specified postprocedural states; Z96.641 Presence of right artificial hip joint; Z20.822 Contact with and (suspected) exposure to COVID-19; W19.XXXA Unspecified fall, initial encounter
CPT/HCPCS: 27814; 36415; 76000; 80053; 85025; 87635; C1713; C1776; J0690; J2250; J2405; J2704; J2795; J3010; J3490; J7120; 01480; 64450; 76942; U0002